=== PATIENT | male | born 1945 | race Two or more races ===

== ENCOUNTER 2016-11-19 06:32 | Day surgery (SDC) | payer MEDICARE ==
[2016-11-18 12:08] VITALS: BMI 34.7
[~2016-11-19 06:32] MED LIST: HYDROmorphone 1 MG/ML 1 ML SYRINGE IVP PRN; LACTATED RINGERS 1,000 ML IV SCH; SODIUM CHLORIDE 0.9% 1,000 ML IV SCH
[2016-11-19 07:02] LABS: Glucose,Whole Blood 124 mg/dL (75-99)
[2016-11-19] MEDS ORDERED: PROPOFOL 10 MG/ML 20 ML VIAL IV ONE (07:25)
[2016-11-19 07:36] LABS: Anion Gap 11 mmol/L; Blood Urea Nitrogen 20 mg/dL (9-20); Calcium 9.4 mg/dL (8.4-10.2); Carbon Dioxide 29 mmol/L (22-30); Chloride 105 mmol/L (98-107); Glucose 125 mg/dL (74-99); Non-African American GFR(MDRD) >60 (>60 ml/min/1.73 sqM); Potassium 4.5 mmol/L (3.5-5.1); Sodium 145 mmol/L (137-145)
[2016-11-19] MEDS ORDERED: MECLIZINE 25 MG TAB PO PRN (07:48)
[2016-11-19] MEDS ORDERED: FUROSEMIDE 20 MG TAB PO PRN (07:48)
[2016-11-19] MEDS ORDERED: ALBUTEROL INHALER 60 PUFF/8 GM INHALER INHALATION PRN (07:48)
[2016-11-19 07:55] VITALS: RESP 16
[2016-11-19] MEDS ORDERED: SODIUM CHLORIDE 0.9% 1,000 ML IV SCH (08:00)
[2016-11-19] MEDS ORDERED: MULTIVITAMINS, THERA 1 EACH TAB PO SCH (09:00)
[2016-11-19] MEDS ORDERED: NON-FORMULARY DRUG (Potassium Chloride [K-Tab Er] 10 MEQ) PO SCH (09:00)
[2016-11-19] MEDS ORDERED: APIXABAN 5 MG TAB PO SCH (09:00)
[2016-11-19] MEDS ORDERED: amLODIPine 5 MG TAB PO SCH (09:00)
[2016-11-19] MEDS ORDERED: metFORMIN 500 MG TAB PO SCH (09:00)
[2016-11-19] MEDS ORDERED: CYANOCOBALAMIN 2000 MCG PO SCH (09:00)
[2016-11-19] MEDS ORDERED: LEVOTHYROXINE 125 MCG TAB PO SCH (09:00)
[2016-11-19] MEDS ORDERED: BECLOMETHASONE DIP 80 MCG/PUFF INHALER INHALATION SCH (09:00)
[2016-11-19] MEDS ORDERED: CHOLECALCIFEROL 1,000 UNIT TAB PO SCH (09:00)
[2016-11-19 09:24] VITALS: BP 126/77; PULSE 60; TEMP 98.2
--- NOTE | 2016-11-19 10:47 | ECHOT ---
DATE OF SERVICE: CLINICAL INFORMATION: INDICATION: Evaluation of left atrial appendage. PROCEDURE: After explaining the procedure to the patient as well as the risks and complications, his blood pressure, heart rate, O2 saturation was monitored. The throat was sprayed with Cetacaine. After receiving sedation state per anesthesia department, the probe was introduced into the esophagus. Images were obtained from that. Following that, the probe was removed. There were no immediate complications. FINDINGS: Left atrial size is dilated, right atrial size is dilated. Left atrial appendage is normal. Left ventricular size and systolic function is normal. The aortic valve appear to be normal. Mitral valve is normal. Tricuspid valve is normal. Descending thoracic aortic appears to be normal. Contrast bubble study revealed no evidence of shunting across the interatrial septum. No pericardial effusion was noted. Doppler pulse wave and color Doppler were obtained and revealed mild to moderate mitral with mild tricuspid and aortic regurgitation. There was no shunting by color Doppler study. CONCLUSION: 1. Biatrial enlargement with normal appearance of left atrial appendage. 2. Normal left ventricular size systolic function. 3. Mild to moderate mitral with mild tricuspid and aortic regurgitation. 4. Normal appearance descending thoracic aorta. 5. No shunting by color Doppler study.
[2016-11-19] MEDS ORDERED: VALSARTAN PO SCH (12:00)
[2016-11-19] MEDS ORDERED: HYDROCHLOROTHIAZIDE PO SCH (12:00)
--- NOTE | 2016-11-19 15:26 | CE ---
DATE OF SERVICE: INDICATION: Atrial fibrillation. PROCEDURE: After explaining the procedure to the patient as well as risks and complications, after obtaining sedated state and performing transesophageal echocardiogram and with the assistance of the Anesthesia Department, a synchronized biphasic 200 joule was delivered with moravian of normal sinus rhythm. There was no immediate complication.
[2016-11-19] MEDS ORDERED: ATENOLOL 25 MG TAB PO SCH (21:00)
== END 2016-11-19 09:32 | disposition home or self-care (01) ==
LOC: CATHCVL 06:32
PROVIDERS: ATTEND Internal Medicine Interventional Cardiology
DX: I48.2 Chronic atrial fibrillation (principal); Z79.01 Long term (current) use of anticoagulants; I08.3 Combined rheumatic disorders of mitral, aortic and tricuspid valves; I25.10 Atherosclerotic heart disease of native coronary artery without angina pectoris; I10 Essential (primary) hypertension; E78.2 Mixed hyperlipidemia; E11.9 Type 2 diabetes mellitus without complications; Z79.84 Long term (current) use of oral hypoglycemic drugs; E03.9 Hypothyroidism, unspecified; Z79.51 Long term (current) use of inhaled steroids; Z79.899 Other long term (current) drug therapy; Z88.0 Allergy status to penicillin; Z91.09 Other allergy status, other than to drugs and biological substances
CPT/HCPCS: 93312; 93320; 93005; 93325; 92960; 80048; J2704

== ENCOUNTER → 2017-05-02 | Outpatient (CLI) | payer MEDICARE ==
--- NOTE | 2017-05-03 12:38 | MR ---
EXAMINATION TYPE: MR cervical spine wo con DATE OF EXAM: 05/02/2017 11:34 AM COMPARISON: 02/18/2010 HISTORY: Neck pain Multiplanar MultiSpin echo imaging of the cervical spine was performed. Comparison: 02/18/2010 C2-C3: No evidence for degenerative disc disease. No disc bulge/herniation or protrusion. No Canal stenosis. Foramina are patent bilaterally. C3-C4: There is severe disc desiccation. Moderate posterior central disc herniation effaces the ventr al thecal sac. There is cord contact with moderately severe central stenosis. Increased signal within the cervical spinal cord compatible with compressive myelopathy. There is also thinning of the cervi aldair spinal cord at this level. Uncovertebral joint hypertrophy resulting in bilateral foraminal encro achment at least moderate in degree. C4-C5: There is severe disc desiccation. Moderate posterior central disc herniation effaces the ventr al thecal sac. There is cord contact with moderately severe central stenosis. Increased signal within the cervical spinal cord compatible with compressive myelopathy. There is also thinning of the cervi aldair spinal cord at this level. Uncovertebral joint hypertrophy resulting in bilateral foraminal encro achment at least moderate in degree. C5-C6: Moderate disc desiccation. Moderate diffuse posterior disc bulge with effacement of the ventra l thecal sac. Small herniation suspected paracentrally and to the right at the level of the right kevin ral foramen resulting in foraminal encroachment. Mild deformity of the ventral thecal sac with mild c entral stenosis. C6-C7: Moderate disc desiccation. Left paracentral disc protrusion with mild effacement ventral theca l sac. No evidence for cord contact or central stenosis. Degenerative change and uncovertebral joints resulting in right foraminal encroachment. C7-T1: Moderate disc desiccation. Diffuse posterior disc bulge with mild effacement ventral thecal sa c. No herniation or central stenosis. No cord contact. Bilateral foraminal encroachment. Cervical segments are intact. There is normal alignment. Craniovertebral junction relationships a re within normal limits. IMPRESSION: 1. Progressive Multilevel degenerative disc disease. 2. Multilevel central stenosis greatest at C3-4 and C4-5 and mild at C5-6. 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 3. Multilevel neural foraminal encroachment.
== END | disposition home or self-care (01) ==
LOC: RADMRIMAIN 10:56
PROVIDERS: ATTEND Family Medicine
DX: M48.02 Spinal stenosis, cervical region (principal); M50.30 Other cervical disc degeneration, unspecified cervical region
CPT/HCPCS: 72141

== ENCOUNTER → 2018-08-27 | Outpatient (CLI) | payer MEDICARE ==
--- NOTE | 2018-08-27 09:50 | MR ---
EXAMINATION TYPE: MR lumbar spine wo con DATE OF EXAM: 08/27/2018 COMPARISON: 05/07/2010 HISTORY: Spinal stenosis, lumbar region TECHNIQUE: T1 and T2 axial and sagittal images of the lumbar spine are submitted. FINDINGS: There is no abnormal signal seen within the visualized spinal cord or paraspinal soft tissu es. Bilateral renal cyst are seen with a large renal cyst measuring approximately 10 cm on the left. At L1-2 there is degenerative disc disease with no disc herniation or canal stenosis. No foraminal en croachment. At L2-3 there is degenerative disc disease with central broad-based disc protrusion with moderate eff acement of thecal sac. Facet arthropathy and ligament flavum hypertrophy contribute to mild central s tenosis and bilateral foraminal encroachment. However, suspect a small extruded disc fragment measuri ng 5 mm paracentrally to left posterior to the upper margin of the L3 vertebral body. At L3-4 there is degenerative disc disease with facet arthropathy but no canal stenosis. Mild bilater al neural foraminal encroachment. At L4-5 there is degenerative disc disease with facet arthropathy and ligamentum flavum hypertrophy. Disc bulging contributes to mild to moderate canal stenosis and moderate bilateral foraminal encroach ment. Cannot exclude a tiny extruded disc fragment paracentrally to left posterior to the L4 vertebra l body. At L5-S1 there is degenerative disc disease with central disc bulging. No Canal stenosis. Advanced fa cet arthropathy with moderate bilateral foraminal encroachment greater on the right. IMPRESSION: 1. Multilevel degenerative disc disease with mild progression relative the prior exam. 2. Disc bulging and hypertrophic changes L2-L3 progressed. There is moderate central stenosis and alexey picion for a small 5 mm extruded disc fragment paracentrally to left posterior to the upper margin of the L3 vertebral body. 3. Disc bulging L4-L5 with hypertrophic changes results in mild to moderate canal stenosis and bilate ral foraminal encroachment. Cannot exclude a tiny extruded disc fragment paracentrally to left respiratory therapy technician ior to the L4 vertebral body. 4. Multilevel facet arthropathy and foraminal encroachment as discussed above. 5. There is a large 10 cm left simple renal cyst.
== END | disposition home or self-care (01) ==
LOC: RADMRIMAIN 08:35
PROVIDERS: ATTEND Specialist
DX: M48.061 Spinal stenosis, lumbar region without neurogenic claudication (principal); M51.26 Other intervertebral disc displacement, lumbar region; M51.36 Other intervertebral disc degeneration, lumbar region; M46.96 Unspecified inflammatory spondylopathy, lumbar region
CPT/HCPCS: 72148

== ENCOUNTER → 2018-09-22 | Outpatient (CLI) | payer MEDICARE ==
--- NOTE | 2018-09-22 08:55 | US ---
EXAMINATION TYPE: US abdomen complete DATE OF EXAM: 09/22/2018 COMPARISON: US CLINICAL HISTORY: R10.11 RUQ Abdominal Pain. NPO, RUQ pain EXAM MEASUREMENTS: Liver Length: 16.9 cm Gallbladder Wall: 0.3 cm CBD: 0.2 cm Spleen: 0.3 cm Right Kidney: 12.4 x 4.9 x 6.1 cm Left Kidney: 12.9 x 4.3 x 5.9 cm Pancreas: Tail obscured by overlying bowel gas, echogenic in appearance Liver: wnl Gallbladder: wnl Evidence for sonographic Vu's sign: neg CBD: wnl CHD: wnl Spleen: wnl, limited visualization Right Kidney: wnl Left Kidney: Multiple cystic appearing lesion seen, largest measured. Upper- 8.8 x 8.6 x 9.4 cm. L ower- 2.7 x 2.3 x 2.1 cm Upper IVC: wnl Abd Aorta: Prox and mid not visualized due to overlying bowel gas. The liver is homogenous. The intrahepatic portion of the IVC and proximal abdominal aorta are within normal limits. There is no evidence of cholelithiasis. Common bile duct is unremarkable. The visu alized portions of the pancreas are homogenous. The spleen is unremarkable. Kidneys are symmetric a nd free of hydronephrosis. No solid renal lesions are seen. IMPRESSION: 1. Multiple left renal cystic lesions.
== END | disposition home or self-care (01) ==
LOC: RADUSWWP 08:09
PROVIDERS: ATTEND Family Medicine
DX: N28.1 Cyst of kidney, acquired (principal)
CPT/HCPCS: 76700

== ENCOUNTER → 2018-10-06 | Outpatient (CLI) | payer MEDICARE ==
[2018-10-06 08:34] LABS: Blood Urea Nitrogen 25 mg/dL (9-20)
--- NOTE | 2018-10-06 13:40 | CT ---
EXAMINATION TYPE: CT chest w con DATE OF EXAM: 10/06/2018 COMPARISON: None HISTORY: Right lower rib/side pain CT DLP: 533.6 mGycm, Automated exposure control for dose reduction was used. CONTRAST: Performed injected with 100 mL of Isovue 300. TECHNIQUE: Axial images were obtained at 5 mm thick sections. Reconstructed images are reviewed on [employer] computer in the coronal plane. FINDINGS: Portion of the thyroid visualized is normal. No suspicious lung nodules or focal infiltrates are present. There is a calcified nodule within the periphery of the right midlung measuring 0.5 cm likely is a calcified granuloma. No enlarged mediastinal or hilar adenopathy is evident. The ascending aorta diameter at the level o f the main pulmonary artery is 4.1 cm. The main pulmonary artery diameter at the bifurcation is 3.[address] sections are obtained through the upper abdomen. There is a 9.8 cm cyst measuring 6 Hounsf ield units extending from the superior pole left kidney. IMPRESSIONS: 1. Calcified nodule within the right midlung likely granuloma. Follow-up in 6 months can be performed . 2. Large left renal cyst
== END | disposition home or self-care (01) ==
LOC: RADCTMAIN 07:53
PROVIDERS: ATTEND Family Medicine
DX: R91.1 Solitary pulmonary nodule (principal)
CPT/HCPCS: 82565; 84520; 71260; 36415; Q9967

== ENCOUNTER 2018-12-24 14:07 | Emergency (ER) | payer MEDICARE ==
[2018-12-24 14:15] VITALS: TEMP 97.9
[2018-12-24] MEDS ORDERED: SODIUM CHLORIDE 0.9% 1,000 ML IV STA (14:49)
[2018-12-24] MEDS ORDERED: MECLIZINE 12.5 MG TAB PO STA (14:52)
--- NOTE | 2018-12-24 14:52 | ED ---
Syncope HPI - General Chief Complaint: Syncope Stated Complaint: Fall, Dizziness Time Seen by Provider: 12/24/18 14:25 Source: patient, family, RN notes reviewed Mode of arrival: wheelchair Limitations: no limitations - History of Present Illness Initial Comments: This is a 73-year-old male with a prior history of vertigo who had been prescribed Antivert 3 years ago who states he had the onset last evening of left so where he was sitting inside of his bed and neck seen in he was on the ground. He believes he almost passed out very briefly but the symptoms resolved right away. He states there are time he moves his eyes or head he feels like he is spinning. He feels generally weak no focal deficits no headache no blurry vision. He does state he has some itchiness in his left ear. He did recently fly an airplane. He has had nausea vomiting and diarrhea since yesterday. No fevers chills sweats or other symptoms reported at this time no other modifying factors he did take Antivert last night and this morning without relief he states it may be because of old prescription and the medication may not be working. MD Complaint: loss of consciousness, other - Related Data Home Medications Medication Instructions Recorded Confirmed Furosemide [Lasix] 20 mg PO DAILY PRN 01/26/15 12/24/18 Levothyroxine Sodium [Synthroid] 125 mcg PO QAM 01/26/15 12/24/18 amLODIPine [Norvasc] 5 mg PO QAM 01/26/15 12/24/18 Multivitamins, Thera [Multivitamin] 1 tab PO DAILY 01/29/15 12/24/18 Valsartan/Hydrochlorothiazide 1 tab PO DAILY 01/29/15 12/24/18 [Diovan Hct 160-25 mg Tablet] metFORMIN HCL [Glucophage] 500 mg PO BID 01/29/15 12/24/18 Atenolol 12.5 mg PO HS 10/09/15 12/24/18 Cyanocobalamin (Vitamin B-12) 2,000 mcg PO DAILY 10/09/15 12/24/18 [Vitamin B-12] Apixaban [Eliquis] 5 mg PO BID 11/18/16 12/24/18 Meclizine [Antivert] 25 mg PO BID PRN 11/19/16 12/24/18 Atorvastatin [Lipitor] 20 mg PO DAILY 12/24/18 12/24/18 Cholecalciferol [Vitamin D3 (25 5,000 unit PO DAILY 12/24/18 12/24/18 Mcg = 1000 Iu)] Vitamin B Complex 1 cap PO DAILY 12/24/18 12/24/18 Previous Rx's Medication Instructions Recorded Diazepam [Valium] 2 mg PO BID PRN #10 tab 12/24/18 Furosemide [Lasix] 10 mg PO BID PRN #10 tab 12/24/18 Meclizine [Antivert] 25 mg PO TID #20 tab 12/24/18 Allergies Allergy/AdvReac Type Severity Reaction Status Date / Time Iodinated Contrast- Oral and Allergy Severe Dyspnea,N/V Verified 12/24/18 14:36 IV Dye [Iodinated Contrast Media - IV Dye] iodine Allergy Severe Dyspnea,N/V Verified 12/24/18 14:36 adhesive Allergy Rash/Hives Verified 12/24/18 14:36 Penicillins Allergy Rash/Hives Verified 12/24/18 14:36 Review of Systems ROS Statement: Those systems with pertinent positive or pertinent negative responses have been documented in the HPI. ROS Other: All systems not noted in ROS Statement are negative. Past Medical History Past Medical History: Atrial Fibrillation, Asthma, Diabetes Mellitus, Hypertension, Prostate Disorder, Thyroid Disorder Additional Past Medical History / Comment(s): steroids October 27,bronchitis,arthritis, bulging disks neck and lower back, slow heart beat,enlarged prostate History of Any Multi-Drug Resistant Organisms: None Reported Past Surgical History: Appendectomy, Heart Catheterization, Prostate Surgery Additional Past Surgical History / Comment(s): neck surgery, BPH/TURP, multiple cardioversion , growth removed from left ear Past Anesthesia/Blood Transfusion Reactions: No Reported Reaction Additional Past Anesthesia/Blood Transfusion Reaction / Comment(s): no hx blood transfusion Past Psychological History: No Psychological Hx Reported Smoking Status: Former smoker Past Alcohol Use History: Rare Past Drug Use History: None Reported - Past Family History Father Family Medical History: Cancer Additional Family Medical History / Comment(s): at age 91 or 92,colon CA Sister(s) Family Medical History: Cancer Additional Family Medical History / Comment(s): kidney,breast,leg Mother Family Medical History: CVA/TIA, Diabetes Mellitus Additional Family Medical History / Comment(s): heart problems, at age 83 or 84 General Exam - General Exam Comments Initial Comments: This is a well-developed well-nourished awake alert oriented 3 male Limitations: no limitations General appearance: alert, in no apparent distress Head exam: Present: atraumatic, normocephalic, normal inspection Eye exam: Present: normal appearance, PERRL, EOMI. Absent: scleral icterus, conjunctival injection, periorbital swelling ENT exam: Present: normal exam, mucous membranes dry, mucous membranes moist Neck exam: Present: normal inspection. Absent: tenderness, meningismus, lymphadenopathy Respiratory exam: Present: normal lung sounds bilaterally. Absent: respiratory distress, wheezes, rales, rhonchi, stridor Cardiovascular Exam: Present: normal rhythm, bradycardia. Absent: systolic murmur, diastolic murmur, rubs, gallop, clicks GI/Abdominal exam: Present: soft, normal bowel sounds. Absent: distended, tenderness, guarding, rebound, rigid Extremities exam: Present: normal inspection, full ROM, normal capillary refill. Absent: tenderness, pedal edema, joint swelling, calf tenderness Back exam: Present: normal inspection Neurological exam: Present: alert, oriented X3, CN II-XII intact Psychiatric exam: Present: normal affect, normal mood Skin exam: Present: warm, dry, intact, normal color. Absent: rash Course Vital Signs 12/24/18 12/24/18 12/24/18 14:10 14:30 15:00 Temperature 97.9 F Pulse Rate 54 L 52 L 55 L Respiratory 16 20 27 H Rate Blood Pressure 135/81 133/89 140/98 O2 Sat by Pulse 99 96 96 Oximetry 12/24/18 12/24/18 15:30 16:00 Temperature Pulse Rate 47 L 48 L Respiratory 20 24 Rate Blood Pressure 118/88 121/78 O2 Sat by Pulse 95 97 Oximetry EKG Findings - EKG Results: EKG: interpreted by ERMD (Patient has a junctional rhythm rate was 49 QRS 86 QT since QTC of 484/[address]-T wave configuration compared with an EKG dated 11/19/16 showing similar configuration) Medical Decision Making - Medical Decision Making (Showing much improved after the Antivert was given. We did discuss different options patient would like to try going home on a new prescription of Antivert he will be given a low dose of Valium and Lasix to be tried should this fail. He's also been and try the maneuvers that he is aware of. Otherwise follow-up with his doctor and return when necessary - Lab Data Result diagrams: 12/24/18 14:27 12/24/18 14:27 Lab Results 12/24/18 12/24/18 12/24/18 Range/Units 14:27 14:27 14:27 WBC 9.5 (3.8-10.6) k/uL RBC 5.22 (4.30-5.90) m/uL Hgb 14.5 (13.0-17.5) gm/dL Hct 45.8 (39.0-53.0) % MCV 87.7 (80.0-100.0) fL MCH 27.8 (25.0-35.0) pg MCHC 31.7 (31.0-37.0) g/dL RDW 13.6 (11.5-15.5) % Plt Count 229 (150-450) k/uL Neutrophils % 60 % Lymphocytes % 29 % Monocytes % 7 % Eosinophils % 2 % Basophils % 1 % Neutrophils # 5.7 (1.3-7.7) k/uL Lymphocytes # 2.7 (1.0-4.8) k/uL Monocytes # 0.7 (0-1.0) k/uL Eosinophils # 0.2 (0-0.7) k/uL Basophils # 0.1 (0-0.2) k/uL PT 10.8 (9.0-12.0) sec INR 1.0 (<1.2) APTT 25.3 (22.0-30.0) sec Sodium 140 (137-145) mmol/L Potassium 4.3 (3.5-5.1) mmol/L Chloride 105 (98-107) mmol/L Carbon Dioxide 26 (22-30) mmol/L Anion Gap 9 mmol/L BUN 15 (9-20) mg/dL Creatinine 0.77 (0.66-1.25) mg/dL Est GFR (CKD-EPI)AfAm >90 (>60 ml/min/1.73 sqM) Est GFR (CKD-EPI)NonAf 90 (>60 ml/min/1.73 sqM) Glucose 150 H (74-99) mg/dL Calcium 9.5 (8.4-10.2) mg/dL Magnesium 1.9 (1.6-2.3) mg/dL Total Bilirubin 0.7 (0.2-1.3) mg/dL AST 21 (17-59) U/L ALT 17 L (21-72) U/L Alkaline Phosphatase 64 (38-126) U/L Creatine Kinase 90 (55-170) U/L Troponin I (0.000-0.034) ng/mL Total Protein 6.7 (6.3-8.2) g/dL Albumin 4.0 (3.5-5.0) g/dL Urine Color Urine Appearance (Clear) Urine pH (5.0-8.0) Ur Specific [place] (1.001-1.035) Urine Protein (Negative) Urine Glucose (UA) (Negative) Urine Ketones (Negative) Urine Blood (Negative) Urine Nitrite (Negative) Urine Bilirubin (Negative) Urine Urobilinogen (<2.0) mg/dL Ur Leukocyte Esterase (Negative) Urine RBC (0-5) /hpf Urine WBC (0-5) /hpf Ur Squamous Epith Cells (0-4) /hpf 12/24/18 12/24/18 Range/Units 14:27 15:10 WBC (3.8-10.6) k/uL RBC (4.30-5.90) m/uL Hgb (13.0-17.5) gm/dL Hct (39.0-53.0) % MCV (80.0-100.0) fL MCH (25.0-35.0) pg MCHC (31.0-37.0) g/dL RDW (11.5-15.5) % Plt Count (150-450) k/uL Neutrophils % % Lymphocytes % % Monocytes % % Eosinophils % % Basophils % % Neutrophils # (1.3-7.7) k/uL Lymphocytes # (1.0-4.8) k/uL Monocytes # (0-1.0) k/uL Eosinophils # (0-0.7) k/uL Basophils # (0-0.2) k/uL PT (9.0-12.0) sec INR (<1.2) APTT (22.0-30.0) sec Sodium (137-145) mmol/L Potassium (3.5-5.1) mmol/L Chloride (98-107) mmol/L Carbon Dioxide (22-30) mmol/L Anion Gap mmol/L BUN (9-20) mg/dL Creatinine (0.66-1.25) mg/dL Est GFR (CKD-EPI)AfAm (>60 ml/min/1.73 sqM) Est GFR (CKD-EPI)NonAf (>60 ml/min/1.73 sqM) Glucose (74-99) mg/dL Calcium (8.4-10.2) mg/dL Magnesium (1.6-2.3) mg/dL Total Bilirubin (0.2-1.3) mg/dL AST (17-59) U/L ALT (21-72) U/L Alkaline Phosphatase (38-126) U/L Creatine Kinase (55-170) U/L Troponin I <0.012 (0.000-0.034) ng/mL Total Protein (6.3-8.2) g/dL Albumin (3.5-5.0) g/dL Urine Color Light Yellow Urine Appearance Clear (Clear) Urine pH 6.0 (5.0-8.0) Ur Specific [place] 1.004 (1.001-1.035) Urine Protein Trace H (Negative) Urine Glucose (UA) Negative (Negative) Urine Ketones Negative (Negative) Urine Blood Trace H (Negative) Urine Nitrite Negative (Negative) Urine Bilirubin Negative (Negative) Urine Urobilinogen <2.0 (<2.0) mg/dL Ur Leukocyte Esterase Negative (Negative) Urine RBC 2 (0-5) /hpf Urine WBC 1 (0-5) /hpf Ur Squamous Epith Cells <1 (0-4) /hpf - Radiology Data Radiology results: report reviewed (I did review the imaging and report no acute findings.), image reviewed Disposition Clinical Impression: Benign paroxysmal vertigo Disposition: HOME SELF-CARE Condition: Good Instructions (If sedation given, give patient instructions): Benign Paroxysmal Positional Vertigo (ED) Prescriptions: Meclizine [Antivert] 25 mg PO TID #20 tab Furosemide [Lasix] 10 mg PO BID PRN #10 tab PRN Reason: Vertigo Diazepam [Valium] 2 mg PO BID PRN #10 tab PRN Reason: Vertigo Is patient prescribed a controlled substance at d/c from ED?: No Referrals: Regan Duque DO [Primary Care Provider] - 1-2 days
[2018-12-24 15:04] LABS: Basophils # (A) 0.1 k/uL (0-0.2); Basophils % (A) 1 %; Eosinophils # (A) 0.2 k/uL (0-0.7); Eosinophils % (A) 2 %; HCT 45.8 % (39.0-53.0); HGB 14.5 gm/dL (13.0-17.5); Lymphocytes # (A) 2.7 k/uL (1.0-4.8); Lymphocytes % (A) 29 %; MCH 27.8 pg (25.0-35.0); MCHC 31.7 g/dL (31.0-37.0); MCV 87.7 fL (80.0-100.0); Mean Platelet Volume 6.9; Monocytes # (A) 0.7 k/uL (0-1.0); Monocytes % (A) 7 %; Neutrophils # (A) 5.7 k/uL (1.3-7.7); Neutrophils % (A) 60 %; Platelet Count 229 k/uL (150-450); RBC 5.22 m/uL (4.30-5.90); RDW 13.6 % (11.5-15.5); WBC 9.5 k/uL (3.8-10.6)
[2018-12-24 15:11] LABS: ALT 17 U/L (21-72); AST 21 U/L (17-59); Alkaline Phosphatase 64 U/L (38-126); Anion Gap 9 mmol/L; Blood Urea Nitrogen 15 mg/dL (9-20); Calcium 9.5 mg/dL (8.4-10.2); Carbon Dioxide 26 mmol/L (22-30); Chloride 105 mmol/L (98-107); Creatine Kinase 90 U/L (55-170); Glucose 150 mg/dL (74-99); Magnesium 1.9 mg/dL (1.6-2.3); Partial Thromboplastin Time 25.3 sec (22.0-30.0); Potassium 4.3 mmol/L (3.5-5.1); Prothrombin Time 10.8 sec (9.0-12.0); Sodium 140 mmol/L (137-145); Total Bilirubin 0.7 mg/dL (0.2-1.3); Total Protein 6.7 g/dL (6.3-8.2)
--- NOTE | 2018-12-24 15:16 | XR ---
EXAMINATION TYPE: XR chest 2V DATE OF EXAM: 12/24/2018 COMPARISON: 06/17/2010 HISTORY: Syncope and fall. TECHNIQUE: Frontal and lateral views of the chest are obtained. FINDINGS: There is no focal air space opacity, pleural effusion, or pneumothorax seen. Cardiomediast inal silhouette is mildly enlarged. The osseous structures are intact. There is partial visualizati on of a cervical fusion device. The noncalcified pulmonary nodule in the right midlung for which six- month follow-up was recommended of 10/06/2018 is not seen well radiographically. Continued follow-up w ith CT is recommended. IMPRESSION: No acute cardiopulmonary process.
[2018-12-24 15:23] LABS: Appearance,Urine Clear (Clear); Bilirubin,Urine Negative (Negative); Blood,Urine Trace (Negative); Color,Urine Light Yellow; Glucose,Urine (UA) Negative (Negative); Ketones,Urine Negative (Negative); Leukocyte Esterase,Urine Negative (Negative); Nitrite,Urine Negative (Negative); Protein,Urine Trace (Negative); RBC,Urine 2 /hpf (0-5); Specific Gravity,Urine 1.004 (1.001-1.035); Squamous Epithelial Cell,Urine <1 /hpf (0-4); Urobilinogen,Urine <2.0 mg/dL (<2.0); WBC,Urine 1 /hpf (0-5)
--- NOTE | 2018-12-24 15:48 | CT ---
EXAMINATION TYPE: CT brain wo con DATE OF EXAM: 12/24/2018 COMPARISON: Dizziness HISTORY: Dizziness x couple days. CT DLP: 1146.4 mGycm Automated exposure control for dose reduction was used. FINDINGS: Nasal septal deviation with changes of chronic sinusitis. Calvarium intact. Gqxe-ia-pyvektib generalized degenerative change. Low-attenuation within the white matter is nonspeci fic. No acute hemorrhage, mass effect, or midline shift. IMPRESSION: DEGENERATIVE AND NONSPECIFIC WHITE MATTER CHANGES MOST TYPICAL REMOTE MICROVASCULAR ISCHEMIA. NO DIAG NOSTIC EVIDENCE OF ACUTE HEMORRHAGE. IF THERE IS CONCERN FOR ACUTE ISCHEMIA CORRELATE WITH MRI IF CLINICALLY WARRANTED
[2018-12-24 16:19] VITALS: BP 121/78; PULSE 48; RESP 24
== END 2018-12-24 16:43 | disposition home or self-care (01) ==
LOC: EC 14:07
DX: H81.10 Benign paroxysmal vertigo, unspecified ear (principal); R11.2 Nausea with vomiting, unspecified; R19.7 Diarrhea, unspecified; I48.91 Unspecified atrial fibrillation; J45.909 Unspecified asthma, uncomplicated; E11.9 Type 2 diabetes mellitus without complications; I10 Essential (primary) hypertension; N40.0 Benign prostatic hyperplasia without lower urinary tract symptoms; E07.9 Disorder of thyroid, unspecified; Z87.891 Personal history of nicotine dependence; Z79.01 Long term (current) use of anticoagulants; Z79.84 Long term (current) use of oral hypoglycemic drugs; Z79.890 Hormone replacement therapy; Z79.899 Other long term (current) drug therapy; Z88.0 Allergy status to penicillin; Z91.041 Radiographic dye allergy status; Z91.048 Other nonmedicinal substance allergy status; Z88.8 Allergy status to other drugs, medicaments and biological substances; Z95.818 Presence of other cardiac implants and grafts
CPT/HCPCS: 36415; 70450; 71046; 80053; 81001; 82550; 83735; 84484; 85025; 85610; 85730; 96360; 96361; 99284

== ENCOUNTER → 2019-02-07 | Outpatient (CLI) | payer MEDICARE ==
--- NOTE | 2019-02-07 15:45 | US ---
EXAMINATION TYPE: US carotid duplex BILAT DATE OF EXAM: 02/07/2019 COMPARISON: NONE CLINICAL HISTORY: I67.82 Cerebral Ischemia. DIZZINESS EXAM MEASUREMENTS: RIGHT: Peak Systolic Velocity (PSV) cm/sec ----- Right CCA: 66.9 ----- Right ICA: 103.1 ----- Right ECA: 108.4 ICA/CCA ratio: 1.5 RIGHT: End Diastole cm/sec ----- Right CCA: 17.1 ----- Right ICA: 33.8 ----- Right ECA: 31.9 LEFT: Peak Systolic Velocity (PSV) cm/sec ----- Left CCA: 50.8 ----- Left ICA: 53.0 ----- Left ECA: 75.6 ICA/CCA ratio: 1.0 LEFT: End Diastole cm/sec ----- Left CCA: 14.1 ----- Left ICA: 18.5 ----- Left ECA: 10.6 VERTEBRALS (direction of flow): Right Vertebral: Antegrade Left Vertebral: Antegrade Rhythm: Arrhythmia Mild homogeneous plaque with no significant stenosis seen IMPRESSION: 1. Mild degree of grayscale atheromatous plaquing with no sonographically evident hemodynamically sig nificant stenosis within either visualized carotid arterial system. 2. Incidentally noted cardiac arrhythmia. Correlate with EKG. Criteria for Assigning % of Stenosis / Diameter reduction (Estimation based on the indirect measurements of the internal carotid artery velocities (ICA PSV). 1. Normal (no stenosis)=ICA PSV < 125 cm/s: ratio < 2.0: ICA EDV<40 cm/s. 2. Less than 50% stenosis=ICA PSV < 125 cm/s: ratio < 2.0: ICA EDV<40 cm/s. 3. 50 to 69% stenosis=ICA PSV of 125 to 230 cm/s: ration 2.0 ? 4.0: ICA EDV 40-100 cm/s. 4. Greater than 70% stenosis to near occlusion= ICA PSV > 230 cm/s: ratio > 4.0: ICA EDV > 100 cm/s. 5. Near occlusion= ICA PSV velocities may be low or undetectable: variable ratio and ICA EDV. 6. Total occlusion=unable to detect flow.
== END | disposition home or self-care (01) ==
LOC: RADUSWWP 14:47
PROVIDERS: ATTEND Family Medicine
DX: I67.2 Cerebral atherosclerosis (principal); I67.82 Cerebral ischemia
CPT/HCPCS: 93880

== ENCOUNTER → 2019-02-07 | Outpatient (CLI) | payer MEDICARE ==
--- NOTE | 2019-02-07 23:47 | MR ---
EXAMINATION TYPE: MR brain and iac wo/w con DATE OF EXAM: 02/07/2019 COMPARISON: HISTORY: vertigo and dizziness, 10ml gadavist TECHNIQUE: Multiplanar, multisequence images of the brain and brainstem is performed without and with IV contras t, utilizing 10ml mL intravenous Gadavist . FINDINGS: There is cerebral cortical atrophy. There is no mass effect nor midline shift. There is no sign of in tracranial hemorrhage. There is no evidence of acute cortical infarct. There is on the FLAIR images discrete scattered foci of increased signal at the byers-white matter kavon ction of both cerebral hemispheres that measure up to 8 mm. Total numbers approximately 15. The brain stem is intact. There is mild mucosal thickening in the maxillary and ethmoid sinuses. There is no evidence of cerebellopontine angle mass. Internal auditory canals appear normal. ACOUSTIC and vestibular nerves appear normal. I see no bony destructive process. Temporal bones appear normal . Cerebellum appears normal. Optic chiasm appears normal. Pituitary stalk appears normal. Sella turcica is normal. There is mild t hinning of the corpus callosum. There is no pathologic enhancement. IMPRESSION: Cerebral atrophy. Scattered white matter signal changes consistent with chronic small ves enma ischemia. No evidence of cortical infarct. No evidence of posterior fossa focal abnormality.
== END | disposition home or self-care (01) ==
LOC: RADMRIMAIN 20:21
PROVIDERS: ATTEND Family Medicine
DX: G31.1 Senile degeneration of brain, not elsewhere classified (principal); I67.82 Cerebral ischemia; H81.10 Benign paroxysmal vertigo, unspecified ear
CPT/HCPCS: 70553; A9585

== ENCOUNTER → 2019-03-11 | Outpatient (CLI) | payer MEDICARE ==
--- NOTE | 2019-03-13 16:15 | MR ---
EXAMINATION TYPE: MR angio head wo con DATE OF EXAM: 03/11/2019 COMPARISON: MRI of the brain and internal auditory canals dated 02/07/2019 HISTORY: Dizziness TECHNIQUE: Time of flight images focusing on the [place] were performed without contrast.. 2-D and 3-D postprocessing imaging is performed. FINDINGS: The internal carotid arteries bifurcate normally into A1 and M1 segments. The A2 segments are normal. Middle cerebral artery branches are normal. 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 Ther e is also a 1 mm saccular aneurysm of the left ICA terminus emanating posteriorly on image 98. Anterior communicating artery is patent. The right posterior communicating artery is patent but extremely diminutive. The left posterior communicating artery is patent but extremely diminutive. Vertebrobasilar arteries within the [id number] are patent. Left vertebral artery is dominant and t here is a tortuous course of the diminutive right vertebral artery. Posterior cerebral vasculature i s normal. No suspicious aneurysm or aneurysmal dilatation is evident in the posterior circulation. No obstructions are identified throughout. No significant flow-limiting stenosis is evident througho ut. 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
== END | disposition home or self-care (01) ==
LOC: RADMRIMAIN 19:36
PROVIDERS: ATTEND Psychiatry & Neurology Neurology
DX: I65.23 Occlusion and stenosis of bilateral carotid arteries (principal)
CPT/HCPCS: 70544

== ENCOUNTER → 2019-07-05 | Outpatient (CLI) | payer MEDICARE ==
[2019-07-05 09:56] LABS: HCT 45.6 % (39.0-53.0); MCH 29.3 pg (25.0-35.0); MCV 88.9 fL (80.0-100.0); Mean Platelet Volume 6.2; Platelet Count 243 k/uL (150-450); RBC 5.13 m/uL (4.30-5.90); RDW 13.3 % (11.5-15.5); WBC 7.1 k/uL (3.8-10.6)
[2019-07-05 17:13] LABS: Anion Gap 8.4 mmol/L (4.00-12.00); Calcium 9.2 mg/dL (8.7-10.3); Carbon Dioxide 28.6 mmol/L (21.6-31.8); Chol/HDL Ratio 4.26; Non-African American GFR(CKD) 73.3 (60.0-200.0); Potassium 4.5 mmol/L (3.5-5.5)
[2019-07-05 17:21] LABS: T4, Free (Free Thyroxine) 1.3 ng/dL (0.80-1.80)
[2019-07-05 20:49] LABS: Hemoglobin A1C 7.2 % (4.0-6.0)
== END | disposition home or self-care (01) ==
LOC: LABWHC1 08:16
PROVIDERS: ATTEND Family Medicine
DX: E03.9 Hypothyroidism, unspecified (principal); E78.5 Hyperlipidemia, unspecified; N40.1 Benign prostatic hyperplasia with lower urinary tract symptoms; E11.65 Type 2 diabetes mellitus with hyperglycemia
CPT/HCPCS: 36415; 80048; 80061; 83036; 84153; 84439; 84443; 84450; 84460; 85027

== ENCOUNTER → 2020-01-23 | Outpatient (CLI) | payer MEDICARE ==
[2020-01-23 10:04] LABS: HCT 46.9 % (39.0-53.0); MCH 28.3 pg (25.0-35.0); MCHC 31.9 g/dL (31.0-37.0); MCV 88.8 fL (80.0-100.0); Mean Platelet Volume 7.3; Platelet Count 227 k/uL (150-450); RBC 5.28 m/uL (4.30-5.90); RDW 13.5 % (11.5-15.5); WBC 7.1 k/uL (3.8-10.6)
[2020-01-23 16:49] LABS: Hemoglobin A1C 7.3 % (4.0-6.0)
[2020-01-23 17:38] LABS: African American GFR (CKD) 96.5 (60.0-200.0); Anion Gap 10.1 mmol/L (4.00-12.00); BUN/Creat Ratio 17.78 Ratio (12.00-20.00); Calcium 9.1 mg/dL (8.7-10.3); Carbon Dioxide 26.9 mmol/L (21.6-31.8); LDL Cholesterol,Calculated 60.6 mg/dL (0.0-131.0); Non-African American GFR(CKD) 83.3 (60.0-200.0); Potassium 3.9 mmol/L (3.5-5.5); VLDL Calculation 15.4 mg/dL (5.00-40.00)
[2020-01-23 17:46] LABS: T4, Free (Free Thyroxine) 1.5 ng/dL (0.80-1.80)
== END | disposition home or self-care (01) ==
LOC: LABWHC1 08:40
PROVIDERS: ATTEND Family Medicine
DX: E03.9 Hypothyroidism, unspecified (principal); I10 Essential (primary) hypertension; E78.5 Hyperlipidemia, unspecified; E55.9 Vitamin D deficiency, unspecified
CPT/HCPCS: 36415; 80048; 80061; 82306; 83036; 84439; 84443; 84450; 84460; 85027

== ENCOUNTER 2020-02-14 05:08 | Observation (INO) | payer MEDICARE ==
[2020-02-14 05:22] LABS: Glucose,Whole Blood 178 mg/dL (75-99)
[2020-02-14 05:41] VITALS: RESP 18
[2020-02-14 05:50] LABS: Basophils # (A) 0.1 k/uL (0-0.2); Basophils % (A) 1 %; Eosinophils # (A) 0.4 k/uL (0-0.7); Eosinophils % (A) 4 %; HCT 44.2 % (39.0-53.0); HGB 14.7 gm/dL (13.0-17.5); Lymphocytes # (A) 2.3 k/uL (1.0-4.8); Lymphocytes % (A) 23 %; MCH 29.5 pg (25.0-35.0); MCHC 33.2 g/dL (31.0-37.0); Mean Platelet Volume 7.5; Monocytes # (A) 0.6 k/uL (0-1.0); Monocytes % (A) 6 %; Neutrophils # (A) 6.5 k/uL (1.3-7.7); Neutrophils % (A) 66 %; Platelet Count 200 k/uL (150-450); RBC 4.97 m/uL (4.30-5.90); RDW 13.4 % (11.5-15.5); WBC 9.8 k/uL (3.8-10.6)
[2020-02-14] MEDS ORDERED: ONDANSETRON 4 MG/2 ML VIAL IVP STA (05:51)
[2020-02-14 05:59] LABS: ALT 19 U/L (4-49); AST 23 U/L (17-59); African American GFR (CKD) >90 (>60 ml/min/1.73 sqM); Albumin 3.9 g/dL (3.5-5.0); Alkaline Phosphatase 82 U/L (38-126); Amylase 53 U/L (30-110); Anion Gap 9 mmol/L; Blood Urea Nitrogen 14 mg/dL (9-20); Carbon Dioxide 26 mmol/L (22-30); Chloride 104 mmol/L (98-107); Glucose 182 mg/dL (74-99); Non-African American GFR(CKD) >90 (>60 ml/min/1.73 sqM); Potassium 3.5 mmol/L (3.5-5.1); Sodium 139 mmol/L (137-145); Total Bilirubin 0.6 mg/dL (0.2-1.3); Total Protein 6.5 g/dL (6.3-8.2)
--- NOTE | 2020-02-14 06:33 | XR ---
EXAM: XR Chest, 2 Views CLINICAL HISTORY: Chest pain TECHNIQUE: Frontal and lateral views of the chest. COMPARISON: December 24, 2018 FINDINGS: Lungs: Unremarkable. No infiltration, atelectasis or mass density. Pleural space: Unremarkable. No pneumothorax. No pleural fluid. Heart: Unremarkable. Upper limits of normal for size for AP technique Mediastinum: Unremarkable. Bones/joints: Unremarkable. No acute abnormalities. IMPRESSION: No acute findings.
--- NOTE | 2020-02-14 07:08 | ED ---
Nausea/Vomiting/Diarrhea HPI - General Chief complaint: Nausea/Vomiting/Diarrhea Stated complaint: headache,vomiting Time Seen by Provider: 02/14/20 05:47 Source: patient Mode of arrival: wheelchair Limitations: no limitations - History of Present Illness Initial comments: This patient is a 75-year-old man who presents to be evaluated for diaphoresis, vomiting, and mild headache. The patient states she was awakened around 4:30 AM today with nausea and then noticed that he sweat was pouring off of him. He states that he changed his clothes and then they were again saturated after approximately 10 minutes and he started having multiple episodes of vomiting. Patient also was having some mild bilateral headache. The patient notes that he had taken a dose of tramadol at approximately 9:30 PM and that is a new medication for him. He is taking the tramadol for what he is describing as some left sided shoulder pain that he believes is muscular. It had come on a number of days ago after he was using a Rotot[employer]. He was seen by his primary p hyblakean and had been given the tramadol and had taken that for the first time last night. MD complaint: nausea, vomiting, other (Diaphoresis) -: hour(s) Description of Vomiting: food contents Associated Abdominal Pain: No Consistency: constant Improves with: none Worsens with: none Context: other (Medication) Associated Symptoms: headaches - Related Data Home Medications Medication Instructions Recorded Confirmed Levothyroxine Sodium [Synthroid] 125 mcg PO AC-BRKFST 01/26/15 02/14/20 amLODIPine [Norvasc] 5 mg PO QAM 01/26/15 02/14/20 Valsartan/Hydrochlorothiazide 1 tab PO DAILY@1200 01/29/15 02/14/20 [Diovan Hct 160-25 mg Tablet] metFORMIN HCL [Glucophage] 500 mg PO BID-W/MEALS 01/29/15 02/14/20 Atenolol 12.5 mg PO HS 10/09/15 02/14/20 Apixaban [Eliquis] 5 mg PO BID-W/MEALS 11/18/16 02/14/20 Atorvastatin [Lipitor] 20 mg PO HS 12/24/18 02/14/20 Cholecalciferol [Vitamin D3 (25 5,000 unit PO DAILY 12/24/18 02/14/20 Mcg = 1000 Iu)] Pyridoxine HCl (Vitamin B6) 100 mg PO DAILY@1200 02/14/20 02/14/20 [Vitamin B-6] traMADol HCL [Ultram] 50 mg PO Q6HR PRN 02/14/20 02/14/20 Allergies Allergy/AdvReac Type Severity Reaction Status Date / Time Iodinated Contrast Media Allergy Severe Dyspnea,N/V Verified 02/14/20 07:58 [Iodinated Contrast Media - IV Dye] iodine Allergy Severe Dyspnea,N/V Verified 02/14/20 07:58 adhesive Allergy Rash/Hives Verified 02/14/20 07:58 Penicillins Allergy Rash/Hives Verified 02/14/20 07:58 Review of Systems ROS Statement: Those systems with pertinent positive or pertinent negative responses have been documented in the HPI. ROS Other: All systems not noted in ROS Statement are negative. Constitutional: Denies: fever, chills, weakness Respiratory: Denies: cough, dyspnea Cardiovascular: Denies: chest pain, palpitations, edema, syncope Gastrointestinal: Reports: nausea, vomiting. Denies: abdominal pain, diarrhea Musculoskeletal: Denies: back pain Skin: Denies: rash Neurological: Denies: headache, weakness, numbness Past Medical History Past Medical History: Atrial Fibrillation, Asthma, Diabetes Mellitus, Hypertension, Prostate Disorder, Thyroid Disorder Additional Past Medical History / Comment(s): steroids October 2016,bronchitis,arthritis, bulging disks neck and lower back, slow heart beat,enlarged prostate, cateract surgery History of Any Multi-Drug Resistant Organisms: None Reported Past Surgical History: Appendectomy, Heart Catheterization, Prostate Surgery Additional Past Surgical History / Comment(s): neck surgery, BPH/TURP, multiple cardioversion , growth removed from left ear Past Anesthesia/Blood Transfusion Reactions: No Reported Reaction Additional Past Anesthesia/Blood Transfusion Reaction / Comment(s): no hx blood transfusion Past Psychological History: No Psychological Hx Reported Smoking Status: Former smoker Past Alcohol Use History: Rare Past Drug Use History: None Reported - Past Family History Father Family Medical History: Cancer Additional Family Medical History / Comment(s): at age 91 or 92,colon CA Sister(s) Family Medical History: Cancer Additional Family Medical History / Comment(s): kidney,breast,leg Mother Family Medical History: CVA/TIA, Diabetes Mellitus Additional Family Medical History / Comment(s): heart problems, at age 83 or 84 General Exam Limitations: no limitations General appearance: alert, in no apparent distress Head exam: Present: atraumatic, normocephalic Eye exam: Present: normal appearance. Absent: scleral icterus, conjunctival injection Neck exam: Present: normal inspection, full ROM Respiratory exam: Present: normal lung sounds bilaterally. Absent: respiratory distress, wheezes, rales, rhonchi, stridor Cardiovascular Exam: Present: bradycardia, irregular rhythm, normal heart sounds. Absent: systolic murmur, diastolic murmur, rubs, gallop GI/Abdominal exam: Present: soft. Absent: distended, tenderness, guarding, rebound, rigid, mass Extremities exam: Present: normal inspection, normal capillary refill. Absent: pedal edema, calf tenderness Back exam: Present: normal inspection. Absent: CVA tenderness (R), CVA tenderness (L) Neurological exam: Present: alert Skin exam: Present: warm, intact, normal color, diaphoretic. Absent: rash Course Vital Signs 02/14/20 02/14/20 02/14/20 05:12 05:40 08:07 Temperature 97.5 F L 97.9 F Pulse Rate 59 L 50 L 52 L Respiratory 16 18 18 Rate Blood Pressure 161/106 146/98 118/88 O2 Sat by Pulse 96 97 100 Oximetry Medical Decision Making - Medical Decision Making Patient is 75-year-old man with diaphoresis, nausea and vomiting. He has had some left shoulder/chest wall pain going on for number days and believes that this is musculoskeletal. His EKG does not appear to be changed but patient will be admitted for serial cardiac enzymes to ensure that this does not represent angina versus missed AL. - Lab Data Result diagrams: 02/14/20 05:40 02/14/20 05:40 Lab Results 02/14/20 02/14/20 02/14/20 Range/Units 05:19 05:40 05:40 WBC 9.8 (3.8-10.6) k/uL RBC 4.97 (4.30-5.90) m/uL Hgb 14.7 (13.0-17.5) gm/dL Hct 44.2 (39.0-53.0) % MCV 89.0 (80.0-100.0) fL MCH 29.5 (25.0-35.0) pg MCHC 33.2 (31.0-37.0) g/dL RDW 13.4 (11.5-15.5) % Plt Count 200 (150-450) k/uL Neutrophils % 66 % Lymphocytes % 23 % Monocytes % 6 % Eosinophils % 4 % Basophils % 1 % Neutrophils # 6.5 (1.3-7.7) k/uL Lymphocytes # 2.3 (1.0-4.8) k/uL Monocytes # 0.6 (0-1.0) k/uL Eosinophils # 0.4 (0-0.7) k/uL Basophils # 0.1 (0-0.2) k/uL Sodium 139 (137-145) mmol/L Potassium 3.5 (3.5-5.1) mmol/L Chloride 104 (98-107) mmol/L Carbon Dioxide 26 (22-30) mmol/L Anion Gap 9 mmol/L BUN 14 (9-20) mg/dL Creatinine 0.63 L (0.66-1.25) mg/dL Est GFR (CKD-EPI)AfAm >90 (>60 ml/min/1.73 sqM) Est GFR (CKD-EPI)NonAf >90 (>60 ml/min/1.73 sqM) Glucose 182 H (74-99) mg/dL POC Glucose (mg/dL) 178 H (75-99) mg/dL POC Glu [employer] ID Lona Watson Calcium 9.0 (8.4-10.2) mg/dL Magnesium (1.6-2.3) mg/dL Total Bilirubin 0.6 (0.2-1.3) mg/dL AST 23 (17-59) U/L ALT 19 (4-49) U/L Alkaline Phosphatase 82 (38-126) U/L Troponin I (0.000-0.034) ng/mL Total Protein 6.5 (6.3-8.2) g/dL Albumin 3.9 (3.5-5.0) g/dL Amylase 53 (30-110) U/L Lipase 71 (23-300) U/L TSH (0.465-4.680) mIU/L Coronavirus (PCR) (Not Detected) 07/07/20 07/07/20 07/07/20 Range/Units 05:40 05:40 06:04 WBC (3.8-10.6) k/uL RBC (4.30-5.90) m/uL Hgb (13.0-17.5) gm/dL Hct (39.0-53.0) % MCV (80.0-100.0) fL MCH (25.0-35.0) pg MCHC (31.0-37.0) g/dL RDW (11.5-15.5) % Plt Count (150-450) k/uL Neutrophils % % Lymphocytes % % Monocytes % % Eosinophils % % Basophils % % Neutrophils # (1.3-7.7) k/uL Lymphocytes # (1.0-4.8) k/uL Monocytes # (0-1.0) k/uL Eosinophils # (0-0.7) k/uL Basophils # (0-0.2) k/uL Sodium (137-145) mmol/L Potassium (3.5-5.1) mmol/L Chloride (98-107) mmol/L Carbon Dioxide (22-30) mmol/L Anion Gap mmol/L BUN (9-20) mg/dL Creatinine (0.66-1.25) mg/dL Est GFR (CKD-EPI)AfAm (>60 ml/min/1.73 sqM) Est GFR (CKD-EPI)NonAf (>60 ml/min/1.73 sqM) Glucose (74-99) mg/dL POC Glucose (mg/dL) (75-99) mg/dL POC Glu [employer] ID Calcium (8.4-10.2) mg/dL Magnesium 1.8 (1.6-2.3) mg/dL Total Bilirubin (0.2-1.3) mg/dL AST (17-59) U/L ALT (4-49) U/L Alkaline Phosphatase (38-126) U/L Troponin I <0.012 (0.000-0.034) ng/mL Total Protein (6.3-8.2) g/dL Albumin (3.5-5.0) g/dL Amylase (30-110) U/L Lipase (23-300) U/L TSH 3.670 (0.465-4.680) mIU/L Coronavirus (PCR) Not Detected (Not Detected) - EKG Data -: EKG Interpreted by Me EKG shows normal: axis (Total), QRS complexes (Incomplete right bundle branch block.) Interpretation: nonspecific ST-T wave changes, other (The underlying rhythm appears to be atrial fibrillation with slow response at 54 bpm. ECG is similar to 2018.) Disposition Clinical Impression: Diaphoresis, Vomiting Disposition: ADMITTED IP TO THIS HOSP Condition: Stable
--- NOTE | 2020-02-14 07:15 | CT ---
EXAM: CT Head Without Intravenous Contrast CLINICAL HISTORY: Headache TECHNIQUE: Axial computed tomography images of the head/brain without intravenous contrast. CTDI is 49.1 mGy and DLP is 1197 mGy-cm. This CT exam was performed using one or more of the following dose reduction techniques: automated exposure control, adjustment of the mA and/or kV according to patient size, and/or use of iterative reconstruction technique. COMPARISON: December 24, 2018. FINDINGS: Brain: Unremarkable. No acute intracranial hemorrhage, edema or abnormal mass-effect. Ventricles: Unremarkable. No ventriculomegaly. Bones/joints: Unremarkable. No acute fracture. Soft tissues: Unremarkable. Sinuses: Unremarkable as visualized. No acute sinusitis. Mastoid air cells: Unremarkable as visualized. No mastoid effusion. IMPRESSION: No acute intracranial findings.
[2020-02-14] MEDS ORDERED: NITROGLYCERIN SL TABS 0.4 MG TAB SUBLINGUAL PRN (07:35)
[2020-02-14 08:09] VITALS: BP 118/88; PULSE 52; TEMP 97.9
[2020-02-14 09:25] LABS: Glucose,Whole Blood 173 mg/dL (75-99)
[2020-02-14 11:48] LABS: Glucose,Whole Blood 148 mg/dL (75-99)
[2020-02-14] MEDS ORDERED: PYRIDOXINE 50 MG TAB PO SCH (12:00)
[2020-02-14] MEDS ORDERED: HYDROCHLOROTHIAZIDE 25 MG TAB PO SCH (12:00)
[2020-02-14] MEDS ORDERED: VALSARTAN 160 MG TAB PO SCH (12:00)
--- NOTE | 2020-02-14 12:34 | P.CRDCN ---
History of Present Illness History of present illness: HISTORY OF PRESENTING ILLNESS This is a pleasant 75-year-old male past medical history significant for on a persistent atrial fibrillation maintained on long-term anticoagulation, hypertension, dyslipidemia, diabetes mellitus, hypothyroidism and asthma. He follows in the office with Dr. Adrian. We have been asked to see in consultation for possible angina. He is seen and examined resting comfortably in bed in no acute distress. He states approximately 2 weeks ago he injured his left shoulder while doing some heavy gardening. He has been following at his primary care office along with a visit to the urgent care. The discomfort in the left shoulder is described as an achy sensation that has been rather constant since the initial injury with episodes of worsening. He states when he turns his head to the left or lifts his left shoulder pain is intensified. He initially was p rescribed Tylenol with Codeine along with a muscle relaxer however this medication made him feel groggy and disoriented so he stopped taking. He saw his primary care physician yesterday and was started on tramadol. He took one pill last night at 10 PM and went to sleep. He woke up at 3 AM diaphoretic and nauseated. He got up to the bathroom and did vomit. He changed his clothes and went back to bed. He woke up 30 minutes later again diaphoretic and nauseated. On arrival to the emergency department he was having ongoing nausea and vomiting. He denies having symptoms of precordial chest pain, shortness of breath, dizziness or palpitations. His nausea has subsided since arrival. DIAGNOSTICS EKG reveals atrial fibrillation heart rate of 54, incomplete right bundle branch block, T-wave inversions laterally. Telemetry tracings reveal atrial fibrillation. Chest xray negative for an acute cardiopulmonary process. Laboratory reviewed, CBC unremarkable, sodium 139, potassium 3.5, creatinine 0.63, cardiac enzymes negative 2. Current cardiac medications include Eliquis 5 mg twice a day, atenolol 12.5 mg at bedtime, atorvastatin 20 mg at bedtime, amlodipine 5 mg daily and valsarta n/HCTZ 160/25 mg daily at noon time. Cardiac catheterizatin 2015 revealed mild non-obstructive triple vessel disease. REVIEW OF SYSTEMS At the time of my exam: CONSTITUTIONAL: Denies fever or chills. CARDIOVASCULAR: Denies chest pain, shortness of breath, orthopnea, PND or palpitations. RESPIRATORY: Denies cough. GASTROINTESTINAL: Denies abdominal pain, diarrhea, constipation, nausea or vomiting. MUSCULOSKELETAL: Denies myalgias. NEUROLOGIC: Denies numbness, tingling or weakness. ENDOCRINE: Denies fatigue, weight change, polydipsia or polyurina. GENITOURINARY: Denies burning, hematuria or urgency with micturation. HEMATOLOGIC: Denies history of anemia or bleeding. PHYSICAL EXAMINATION Blood pressure 118/88 heart rate 52 afebrile and maintaining oxygen saturation on room air. CONSTITUTIONAL: No apparent distress. HEENT: Head is normocephalic. Pupils are equal, round. Sclerae anicteric. Mucous membranes of the mouth are moist. No JVD. No carotid bruit. CHEST EXAMINATION: Lungs are clear to auscultation. No chest wall tenderness is noted on palpation or with deep breathing. HEART EXAMINATION: Irregular rate and rhythm. S1, S2 heard. Systolic ejection murmur at the left sternal border, no gallops or rub. ABDOMEN: Soft, nontender. Positive bowel sounds. EXTREMITIES: 2+ peripheral pulses, no lower extremity edema and no calf tenderness. NEUROLOGIC EXAMINATION: Patient is awake, alert and oriented x3. ASSESSMENT Nausea and vomiting and diaphoresis. Likely related to tramadol. No chest pain or shortness of breath. Left shoulder pain, musculoskeletal Chronic persistent atrial fibrillation on long-term anticoagulation Hypertension Dyslipidemia Diabetes mellitus Hypothyroidism PLAN An acute coronary event has been ruled out. Obtain 2D echocardiogram to assess cardiac structure and function. Pain is atypical for angina and related to musculoskeletal injury. Heart rates run in the high 40-50 range. He is asymptomatic. Check TSH and magnesium level. Thank you kindly for this consultation. Nurse Practitioner note has been reviewed, I agree with a documented findings and plan of care. Patient was seen and examined. 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 History of Any Multi-Drug Resistant Organisms: None Reported Past Surgical History: Appendectomy, Cardiac Ablation, Heart Catheterization, Prostate Surgery Additional Past Surgical History / Comment(s): TEEs, cardioversions, cervical surgery/rods, L ear benign growth removed, bilateral cataract removals with R eye lens implants. Past Anesthesia/Blood Transfusion Reactions: No Reported Reaction Additional Past Anesthesia/Blood Transfusion Reaction / Comment(s): no hx blood transfusion Smoking Status: Former smoker - Past Family History Father Family Medical History: Cancer Additional Family Medical History / Comment(s): at age 94,colon CA Sister(s) Family Medical History: Cancer Additional Family Medical History / Comment(s): kidney,breast cancers Mother Family Medical History: CVA/TIA, Diabetes Mellitus Additional Family Medical History / Comment(s): Mother had heart problems. She at 84 from a CVA Medications and Allergies Home Medications Medication Instructions Recorded Confirmed Type Levothyroxine Sodium [Synthroid] 125 mcg PO AC-BRKFST 01/26/15 02/14/20 History amLODIPine [Norvasc] 5 mg PO QAM 01/26/15 02/14/20 History Valsartan/Hydrochlorothiazide 1 tab PO DAILY@1200 01/29/15 02/14/20 History [Diovan Hct 160-25 mg Tablet] metFORMIN HCL [Glucophage] 500 mg PO BID-W/MEALS 01/29/15 02/14/20 History Atenolol 12.5 mg PO HS 10/09/15 02/14/20 History Apixaban [Eliquis] 5 mg PO BID-W/MEALS 11/18/16 02/14/20 History Atorvastatin [Lipitor] 20 mg PO HS 12/24/18 02/14/20 History Cholecalciferol [Vitamin D3 (25 5,000 unit PO DAILY 12/24/18 02/14/20 History Mcg = 1000 Iu)] Pyridoxine HCl (Vitamin B6) 100 mg PO DAILY@1200 02/14/20 02/14/20 History [Vitamin B-6] traMADol HCL [Ultram] 50 mg PO Q6HR PRN 02/14/20 02/14/20 History Allergies Allergy/AdvReac Type Severity Reaction Status Date / Time Iodinated Contrast Media Allergy Severe Dyspnea,N/V Verified 02/14/20 07:58 [Iodinated Contrast Media - IV Dye] iodine Allergy Severe Dyspnea,N/V Verified 02/14/20 07:58 adhesive Allergy Rash/Hives Verified 02/14/20 07:58 Penicillins Allergy Rash/Hives Verified 02/14/20 07:58 Physical Exam Vitals: Vital Signs Temp Pulse Resp BP Pulse Ox 02/14/20 08:07 97.9 F 52 L 18 118/88 100 02/14/20 05:40 50 L 18 146/98 97 02/14/20 05:12 97.5 F L 59 L 16 161/106 96 Intake and Output 02/13/20 02/14/20 02/14/20 22:59 06:59 14:59 Other: Weight 98.883 kg 98.883 kg Results 02/14/20 05:40 02/14/20 05:40 Cardiac Enzymes 02/14/20 02/14/20 02/14/20 Range/Units 05:40 05:40 09:26 AST 23 (17-59) U/L Troponin I <0.012 <0.012 (0.000-0.034) ng/mL CBC 02/14/20 Range/Units 05:40 WBC 9.8 (3.8-10.6) k/uL RBC 4.97 (4.30-5.90) m/uL Hgb 14.7 (13.0-17.5) gm/dL Hct 44.2 (39.0-53.0) % Plt Count 200 (150-450) k/uL Comprehensive Metabolic Panel 02/14/20 Range/Units 05:40 Sodium 139 (137-145) mmol/L Potassium 3.5 (3.5-5.1) mmol/L Chloride 104 (98-107) mmol/L Carbon Dioxide 26 (22-30) mmol/L BUN 14 (9-20) mg/dL Creatinine 0.63 L (0.66-1.25) mg/dL Glucose 182 H (74-99) mg/dL Calcium 9.0 (8.4-10.2) mg/dL AST 23 (17-59) U/L ALT 19 (4-49) U/L Alkaline Phosphatase 82 (38-126) U/L Total Protein 6.5 (6.3-8.2) g/dL Albumin 3.9 (3.5-5.0) g/dL Current Medications Generic Name Dose Route Start Last Admin Trade Name Freq PRN Reason Stop Dose Admin Amlodipine Besylate 5 mg 02/15/20 09:00 Norvasc PO QAM [facility] Apixaban 5 mg 02/14/20 17:30 Eliquis PO BID-W/MEALS [facility] Atenolol 12.5 mg 02/14/20 21:00 Tenormin PO HS [facility] Atorvastatin Calcium 20 mg 02/14/20 21:00 Lipitor PO HS [facility] Cholecalciferol 5,000 unit 02/15/20 09:00 Vitamin D3 (25 Mcg = 1000 Iu) PO DAILY [facility] Hydrochlorothiazide 25 mg 02/14/20 12:00 Hydrodiuril PO DAILY@1200 [facility] Levothyroxine Sodium 125 mcg 02/15/20 06:30 Synthroid PO AC-BRKFST@0630 [facility] Metformin HCl 500 mg 02/14/20 17:30 Glucophage PO BID-W/MEALS [facility] Nitroglycerin 0.4 mg 02/14/20 07:35 Nitrostat SUBLINGUAL Q5M PRN Chest Pain Pyridoxine HCl 100 mg 02/14/20 12:00 Vitamin B-6 PO DAILY@1200 [facility] Valsartan 160 mg 02/14/20 12:00 Diovan PO DAILY@1200 [facility] Intake and Output 02/13/20 02/14/20 02/14/20 22:59 06:59 14:59 Other: Weight 98.883 kg 98.883 kg Patient Weight 02/15/20 06:59 Weight 98.883 kg 02/14/20 05:40 02/14/20 05:40
[2020-02-14 12:49] LABS: Magnesium 1.8 mg/dL (1.6-2.3)
--- NOTE | 2020-02-14 13:38 | P.HPIM ---
History of Present Illness H&P Date: 02/14/20 Chief Complaint: Perspiration History of presenting complaint: This is a pleasant 75-year-old patient of Dr. Duque. Chronic stable medical conditions include atrial fibrillation, asthma, diabetes, hyperlipidemia, hypertension, osteoarthritis, hypothyroid, small bilateral carotid artery aneurysm being monitored, epis type II, BPH with surgery, osteoarthritis, cervical bulging disc, low back and bilateral hip pain. Patient about 3 weeks ago started having pain in the left shoulder tenderness in the muscle and was to be moved. Went and saw Dr. Duque is mid-level practitioner [place] patient was given medications. Really did not help much. Patient came back to see Dr. Duque. He was switched over to Ultram. Tylenol 3 was discontinued. About 3:00 this morning patient woke up going in sweat and vomited large times 2 with Kymberly biting. Also had loose stools. Slight abdominal discomfort. Does not chest pain. [place] a bit dizzy. Decided to come in. Concern was in the ER to rule out a cardiac cause. Since then patient is feeling better. After throwing up. A few times. The previous night patient eaten a piece of bread with cheese that was from the fridge.. Also avocado. Review of systems: GEN.: Tired, perspiration EYES: None HEENT: None NECK: None RESPIRATORY: None CARDIOVASCULAR: [No chest pain GASTROINTESTINAL: None GENITOURINARY: None MUSCULOSKELETAL: Joint pains LYMPHATICS: None HEMATOLOGICAL: None PSYCHIATRY: None NEUROLOGICAL: None Past medical history to include: Atrophic depression, asthma, diabetes, hyperlipidemia, hypertension, osteoarthritis, BPH with surgery, hypothyroid, small bilateral carotid artery aneurysm, diabetes type 2, cervical bulging disc, occasional low back bilateral hip pain Social history: . Patient smokes is age of 15 on and off to 1985 about a pack a day. Alcohol rarely. Retired INVESTIGATIONS, reviewed in the clinical context: White count 9.8 hemoglobin 14.7 potassium 3.5 creatinine 0.63 Accu-Cheks 170 10/09/1948 Troponin I 3 negative EKG tracing personally reviewed by me-atrial fibrillation heart rate of 54 Computed tomography scan of brain negative Chest x-ray film personally reviewed by me-some cardiomegaly, lung shipley clear Assessment: -This is a patient now about 3:00 in the morning woke up with bouts of perspiration nausea vomiting diarrhea. Appears to be acute food poisoning likely viral gastroenteritis. No obvious self-limiting condition. Patient is feeling better but this morning. -Left shoulder pain likely musculoskeletal but reproducible pain as per history is on for 3 weeks. -Cardiac cause being ruled out -Persistent atrial fibrillation, chronically on eliquis -Essential hypertension -Hyperlipidemia -Hypothyroid -Diabetes mellitus type 2 -Small bilateral carotid artery aneurysm being monitored as an outpatient Plan: Home medications resumed. Cardiology she was consulted. Care was discussed with the patient. Troponins have been negative. Patient advised about a soft bland diet. Questions were answered. Past Medical History Past Medical History: Atrial Fibrillation, Asthma, Diabetes Mellitus, Hyperl ipidemia, Hypertension, Osteoarthritis (OA), Prostate Disorder, Thyroid Disorder, Vascular Disorder Additional Past Medical History / Comment(s): Bradycardia, small bilateral caratid artery aneurysms being monitored, NIDDM type II, bronchitis, BPH with surgery, vertigo, hypothyroid, arthtitis in multiple joints, cervial bulging discs, occasional low back/bilateral hip pain. History of Any Multi-Drug Resistant Organisms: None Reported Past Surgical History: Appendectomy, Cardiac Ablation, Heart Catheterization, Prostate Surgery Additional Past Surgical History / Comment(s): TEEs, cardioversions, cervical surgery/rods, L ear benign growth removed, bilateral cataract removals with R eye lens implants. Past Anesthesia/Blood Transfusion Reactions: No Reported Reaction Additional Past Anesthesia/Blood Transfusion Reaction / Comment(s): no hx blood transfusion Smoking Status: Former smoker - Past Family History Father Family Medical History: Cancer Additional Family Medical History / Comment(s): at age 94,colon CA Sister(s) Family Medical History: Cancer Additional Family Medical History / Comment(s): kidney,breast cancers Mother Family Medical History: CVA/TIA, Diabetes Mellitus Additional Family Medical History / Comment(s): Mother had heart problems. She at 84 from a CVA Medications and Allergies Home Medications Medication Instructions Recorded Confirmed Type Levothyroxine Sodium [Synthroid] 125 mcg PO AC-BRKFST 01/26/15 02/14/20 History amLODIPine [Norvasc] 5 mg PO QAM 01/26/15 02/14/20 History Valsartan/Hydrochlorothiazide 1 tab PO DAILY@1200 01/29/15 02/14/20 History [Diovan Hct 160-25 mg Tablet] metFORMIN HCL [Glucophage] 500 mg PO BID-W/MEALS 01/29/15 02/14/20 History Atenolol 12.5 mg PO HS 10/09/15 02/14/20 History Apixaban [Eliquis] 5 mg PO BID-W/MEALS 11/18/16 02/14/20 History Atorvastatin [Lipitor] 20 mg PO HS 12/24/18 02/14/20 History Cholecalciferol [Vitamin D3 (25 5,000 unit PO DAILY 12/24/18 02/14/20 History Mcg = 1000 Iu)] Pyridoxine HCl (Vitamin B6) 100 mg PO DAILY@1200 02/14/20 02/14/20 History [Vitamin B-6] traMADol HCL [Ultram] 50 mg PO Q6HR PRN 02/14/20 02/14/20 History Allergies Allergy/AdvReac Type Severity Reaction Status Date / Time Iodinated Contrast Media Allergy Severe Dyspnea,N/V Verified 02/14/20 07:58 [Iodinated Contrast Media - IV Dye] iodine Allergy Severe Dyspnea,N/V Verified 02/14/20 07:58 adhesive Allergy Rash/Hives Verified 02/14/20 07:58 Penicillins Allergy Rash/Hives Verified 02/14/20 07:58 Physical Exam Vitals: Vital Signs Temp Pulse Resp BP Pulse Ox 02/14/20 08:07 97.9 F 52 L 18 118/88 100 02/14/20 05:40 50 L 18 146/98 97 02/14/20 05:12 97.5 F L 59 L 16 161/106 96 Intake and Output 02/13/20 02/14/20 02/14/20 22:59 06:59 14:59 Other: Weight 98.883 kg 98.883 kg Results CBC & Chem 7: 02/14/20 05:40 02/14/20 05:40 Labs: Abnormal Lab Results - Last 24 Hours (Table) 02/14/20 02/14/20 02/14/20 Range/Units 05:19 05:40 09:22 Creatinine 0.63 L (0.66-1.25) mg/dL Glucose 182 H (74-99) mg/dL POC Glucose (mg/dL) 178 H 173 H (75-99) mg/dL Thrombosis Risk Factor Assmnt - Choose All That Apply Any of the Below Risk Factors Present?: Yes Each Factor Represents 1 point: Obesity (BMI >25) Other Risk Factors: Yes Each Risk Factor Represents 3 Points: Age 75 years or older Other congenital or acquired thrombophilia - If yes, enter type in comment: No Thrombosis Risk Factor Assessment Total Risk Factor Score: 4 Thrombosis Risk Factor Assessment Level: Moderate Risk
[2020-02-14] MEDS ORDERED: APIXABAN 5 MG TAB PO SCH (17:30)
[2020-02-14] MEDS ORDERED: metFORMIN 500 MG TAB PO SCH (17:30)
[2020-02-14] MEDS ORDERED: ATENOLOL 25 MG TAB PO SCH (21:00)
[2020-02-14] MEDS ORDERED: ATORVASTATIN 20 MG TAB PO SCH (21:00)
--- NOTE | 2020-02-14 22:42 | P.DS ---
Providers Date of admission: 02/14/20 07:35 Expected date of discharge: 02/14/20 Attending physician: Luis M Betts Consults: 02/14/20 07:35 Consult Physician Urgent Consulting Provider: Araceli Adrian Consult Reason/Comments: possible angina Do you want consulting provider notified?: Yes Primary care physician: Regan [facility] Course: Chief Complaint: Perspiration History of presenting complaint: This is a pleasant 75-year-old patient of Dr. Duque. Chronic stable medical conditions include atrial fibrillation, asthma, diabetes, hyperlipidemia, hypertension, osteoarthritis, hypothyroid, small bilateral carotid artery aneurysm being monitored, epis type II, BPH with surgery, osteoarthritis, cervical bulging disc, low back and bilateral hip pain. Patient about 3 weeks ago started having pain in the left shoulder tenderness in the muscle and was to be moved. Went and saw Dr. Duque is mid-level practitioner [place] patient was given medications. Really did not help much. Patient came back to see Dr. Duque. He was switched over to Ultram. Tylenol 3 was discontinued. About 3:00 this morning patient woke up going in sweat and vomited large times 2 with no blood. Also had loose stools. Slight abdominal discomfort. Does not chest pain. [place] a bit dizzy. Decided to come in. Concern was in the ER to rule out a cardiac cause. Since then patient is feeling better. After throwing up. A few times. The previous night patient eaten a piece of bread with cheese that was from the fridge.. Also avocado. Admitted with a diagnosis of viral gastroenteritis. Improved. Given IV fluids. Left shoulder pain musculoskeletal. Seen by cardiology. Care was discussed with the patient. Reassured. Consultation: Dr. Adrian from cardiology On examination: VITAL SIGNS: 97.9, 52, 18, 118/88, 2% room air GENERAL APPEARANCE: Sitting at the edge of bed, comfortable. HEENT: Normal external appearance of nose and ear. Oral cavity normal EYES: Pupils equal. Conjunctiva normal. NECK: JVD not raised. Mass not palpable. RESPIRATORY: Respiratory effort normal. Lungs clear to auscultation. CARDIOVASCULAR: First and second sounds normal. No edema. ABDOMEN: Soft. Liver and spleen not palpable. No tenderness. No mass palpable. PSYCHIATRY: Alert and oriented x3. Mood and affect normal. INVESTIGATIONS, reviewed in the clinical context: White count 9.8 hemoglobin 14.7 potassium 3.5 creatinine 0.63 Accu-Cheks 170 10/09/1948 Troponin I 3 negative EKG tracing personally reviewed by me-atrial fibrillation heart rate of 54 Computed tomography scan of brain negative Chest x-ray film personally reviewed by me-some cardiomegaly, lung shipley clear Assessment: -This is a patient now about 3:00 in the morning woke up with bouts of perspiration nausea vomiting diarrhea. Appears to be acute food poisoning likely viral gastroenteritis. No obvious self-limiting condition. Patient is feeling better but this morning. -Left shoulder pain likely musculoskeletal but reproducible pain as per history is on for 3 weeks. -Cardiac cause being ruled out -Persistent atrial fibrillation, chronically on eliquis -Essential hypertension -Hyperlipidemia -Hypothyroid -Diabetes mellitus type 2 -Small bilateral carotid artery aneurysm being monitored as an outpatient Disposition: Home Patient Condition at Discharge: Stable Plan - Discharge Summary Discharge Rx Participant: No New Discharge Prescriptions: Continue amLODIPine [Norvasc] 5 mg PO QAM Levothyroxine Sodium [Synthroid] 125 mcg PO AC-BRKFST metFORMIN HCL [Glucophage] 500 mg PO BID-W/MEALS Valsartan/Hydrochlorothiazide [Diovan Hct 160-25 mg Tablet] 1 tab PO D AILY@1200 Apixaban [Eliquis] 5 mg PO BID-W/MEALS Cholecalciferol [Vitamin D3 (25 Mcg = 1000 Iu)] 5,000 unit PO DAILY Atorvastatin [Lipitor] 20 mg PO HS traMADol HCL [Ultram] 50 mg PO Q6HR PRN PRN Reason: Pain Pyridoxine HCl (Vitamin B6) [Vitamin B-6] 100 mg PO DAILY@1200 No Action Atenolol 12.5 mg PO HS Discharge Medication List Levothyroxine Sodium [Synthroid] 125 mcg PO AC-BRKFST 01/26/15 [History] amLODIPine [Norvasc] 5 mg PO QAM 01/26/15 [History] Valsartan/Hydrochlorothiazide [Diovan Hct 160-25 mg Tablet] 1 tab PO DAILY@1200 01/29/15 [History] metFORMIN HCL [Glucophage] 500 mg PO BID-W/MEALS 01/29/15 [History] Atenolol 12.5 mg PO HS 10/09/15 [History] Apixaban [Eliquis] 5 mg PO BID-W/MEALS 11/18/16 [History] Atorvastatin [Lipitor] 20 mg PO HS 12/24/18 [History] Cholecalciferol [Vitamin D3 (25 Mcg = 1000 Iu)] 5,000 unit PO DAILY 12/24/18 [History] Pyridoxine HCl (Vitamin B6) [Vitamin B-6] 100 mg PO DAILY@1200 02/14/20 [History] traMADol HCL [Ultram] 50 mg PO Q6HR PRN 02/14/20 [History] Follow up Appointment(s)/Referral(s): Araceli Adrian MD [STAFF PHYSICIAN] - 02/24/20 11:00 am (with Crystal) Regan Duque DO [Primary Care Provider] - 02/17/20 11:00 am Patient Instructions/Handouts: Gastroenteritis (DC) Discharge Disposition: HOME SELF-CARE
[2020-02-15] MEDS ORDERED: LEVOTHYROXINE 125 MCG TAB PO SCH (06:30)
[2020-02-15] MEDS ORDERED: ASPIRIN 325 MG TAB PO SCH (09:00)
[2020-02-15] MEDS ORDERED: amLODIPine 5 MG TAB PO SCH (09:00)
[2020-02-15] MEDS ORDERED: CHOLECALCIFEROL 1,000 UNIT TAB PO SCH (09:00)
--- NOTE | 2020-02-15 16:00 | ECHOF ---
Referral Reason:hx afib MEASUREMENTS -------- HEIGHT: 172.7 cm WEIGHT: 98.9 kg BP: 118/88 RVIDd: 3.4 cm (< 3.3) IVSd: 1.3 cm (0.6 - 1.1) LVIDd: 4.9 cm (3.9 - 5.3) LVPWd: 1.3 cm (0.6 - 1.1) IVSs: 2.0 cm LVIDs: 3.9 cm LVPWs: 1.6 cm LA Diam: 4.4 cm (2.7 - 3.8) LAESV Index (A-L): 32.75 ml/m Ao Diam: 3.9 cm (2.0 - 3.7) AV Cusp: 2.5 cm (1.5 - 2.6) MV EXCURSION: 17.961 mm (> 18.000) MV EF SLOPE: 146 mm/s (70 - 150) EPSS: 0.4 cm AR PHT: 745 ms RAP: 5.00 mmHg RVSP: 36.98 mmHg FINDINGS -------- Atrial fibrillation. This was a technically adequate study. The left ventricular size is normal. There is mild concentric left ventricular hypertrophy. Overa ll left ventricular systolic function is normal with, an EF between 55 - 60 %. The right ventricle is normal in size. LA is midly dilated 29-33ml/m2. The right atrial size is normal. Interatrial and interventricular septum intact. The aortic valve is trileaflet and appears structurally normal. There is mild aortic regurgitation. The mitral valve is normal. [id number]-[id number] mitral regurgitation is present. Mild tricuspid regurgitation present. There is mild pulmonary hypertension. The right ventricular systolic pressure, as measured by Doppler, is 36.98mmHg. Trace/mild (physiologic) pulmonic regurgitation. The aortic root is dilated measuring 3.9cm. Normal inferior vena cava with normal inspiratory collapse consistent with estimated right atrial pre ssure of 5 mmHg. There is no pericardial effusion. CONCLUSIONS -------- 1. There is mild concentric left ventricular hypertrophy. 2. Overall left ventricular systolic function is normal with, an EF between 55 - 60 %. 3. LA is midly dilated 29-33ml/m2. 4. There is mild aortic regurgitation. 5. Jzjp-mv-tgrtsndn mitral regurgitation is present. 6. Mild tricuspid regurgitation present. 7. There is mild pulmonary hypertension. 8. Trace/mild (physiologic) pulmonic regurgitation. 9. The aortic root is dilated measuring 3.9cm. 10. There is no pericardial effusion. AUTOMOTIVE ELECTRICIAN: Lianna Lyons RDCS
== END 2020-02-14 13:38 | disposition home or self-care (01) ==
LOC: EC 05:08 → 1SOBS 07:35
PROVIDERS: ADMIT Hospitalist; ATTEND Hospitalist
DX: A08.4 Viral intestinal infection, unspecified (principal); M25.512 Pain in left shoulder; I48.19 Other persistent atrial fibrillation; I10 Essential (primary) hypertension; E78.5 Hyperlipidemia, unspecified; I45.19 Other right bundle-branch block; R94.31 Abnormal electrocardiogram [ECG] [EKG]; R07.89 Other chest pain; E03.9 Hypothyroidism, unspecified; E11.9 Type 2 diabetes mellitus without complications; I72.0 Aneurysm of carotid artery; J45.909 Unspecified asthma, uncomplicated; M19.90 Unspecified osteoarthritis, unspecified site; M50.20 Other cervical disc displacement, unspecified cervical region; M51.26 Other intervertebral disc displacement, lumbar region; F32.89 Other specified depressive episodes; I08.3 Combined rheumatic disorders of mitral, aortic and tricuspid valves; I27.20 Pulmonary hypertension, unspecified; F17.210 Nicotine dependence, cigarettes, uncomplicated; E66.9 Obesity, unspecified; Z68.33 Body mass index [BMI] 33.0-33.9, adult; Z03.818 Encounter for observation for suspected exposure to other biological agents ruled out; Z79.890 Hormone replacement therapy; Z79.899 Other long term (current) drug therapy; Z79.84 Long term (current) use of oral hypoglycemic drugs; Z79.01 Long term (current) use of anticoagulants; Z91.041 Radiographic dye allergy status; Z91.048 Other nonmedicinal substance allergy status; Z91.09 Other allergy status, other than to drugs and biological substances; Z88.0 Allergy status to penicillin; Z87.09 Personal history of other diseases of the respiratory system; Z86.69 Personal history of other diseases of the nervous system and sense organs; Z98.41 Cataract extraction status, right eye; Z98.42 Cataract extraction status, left eye; Z96.1 Presence of intraocular lens; Z87.438 Personal history of other diseases of male genital organs; Z90.79 Acquired absence of other genital organ(s); Z90.49 Acquired absence of other specified parts of digestive tract; Z98.890 Other specified postprocedural states; Z80.0 Family history of malignant neoplasm of digestive organs; Z80.51 Family history of malignant neoplasm of kidney; Z80.3 Family history of malignant neoplasm of breast; Z80.8 Family history of malignant neoplasm of other organs or systems; Z82.3 Family history of stroke; Z83.3 Family history of diabetes mellitus; Z82.49 Family history of ischemic heart disease and other diseases of the circulatory system
CPT/HCPCS: 96374; 99285; 36415; 93005; 93306; 80053; 84443; 82150; 83690; 83735; 84484; 85025; 71046; 70450; G0378; U0003; J2405

== ENCOUNTER → 2020-03-16 | Outpatient (CLI) | payer MEDICARE ==
--- NOTE | 2020-03-18 21:40 | MR ---
EXAMINATION TYPE: MR cervical spine wo con DATE OF EXAM: 03/16/2020 COMPARISON: MRI cervical spine 05/02/2017. HISTORY: Cervicalgia, fusion of spine, pain in left shoulder and arm TECHNIQUE: Multiplanar, multisequence images of the cervical spine were acquired. Anterior fusion changes of C3-C6, with limited visualization of the C3-C4 and C4-C5 discs. C2-C3: No evidence for degenerative disc disease. No disc bulge/herniation or protrusion. No Canal stenosis. Foramina are patent bilaterally. C3-C4: No disc bulge/herniation or protrusion. No Canal stenosis. Moderate left neural foramina narr owing. C4-C5: Posterior bulge and superimposed central disc protrusion. Moderate Canal stenosis. There is in ternal T2 hyperintense signal within the cervical spinal cord decreased versus 2017 comparison. Jess pili are severely narrowed bilaterally. C5-C6: No evidence for degenerative disc disease. No disc bulge/herniation or protrusion. No Canal stenosis. There is minimal internal T2 hyperintense signal within the cervical spinal cord decreased versus 2017 comparison. Foramina are severely narrowed on the right and mildly narrowed on the left. C6-C7: Moderate posterior disc bulge with superimposed left subarticular disc protrusion. Mild narrow ing of the left lateral recess. Foramina are severely narrowed on the right and mildly narrowed on t he left. C7-T1: Mild posterior disc bulge. No Canal stenosis. Foramina are mildly narrowed bilaterally. Cervical segments are intact. There is normal alignment. Craniovertebral junction relationships are within normal limits. IMPRESSION: 1. Anterior spinal fusion of C3-C6, with decreased disc bulging and canal stenosis of these levels ve rsus 2017 MRI comparison. Mild T2 hyperintense signal at the C4-5 and C5-6 levels of the cervical spi nal cord are seen, also decreased versus 2017 comparison, likely degree of chronic myelopathy. 2. No high-grade canal stenosis. 3. Multilevel neural foramina narrowing, most severe at C4-C5.
== END | disposition home or self-care (01) ==
LOC: RADMRIMAIN 08:32
PROVIDERS: ATTEND Specialist
DX: M48.02 Spinal stenosis, cervical region (principal); M50.221 Other cervical disc displacement at C4-C5 level; M43.22 Fusion of spine, cervical region; Z98.1 Arthrodesis status
CPT/HCPCS: 72141

== ENCOUNTER → 2020-05-19 | Outpatient (CLI) | payer MEDICARE ==
--- NOTE | 2020-05-19 08:40 | MR ---
EXAMINATION TYPE: MR angio head wo con DATE OF EXAM: 05/19/2020 COMPARISON: 03/11/2019 HISTORY: Cerebral aneurysm,dizziness TECHNIQUE: Utilizing 3-D [id number] intracranial MRA of the lower [place] of [place] was performed. FINDINGS: The internal carotid arteries bifurcate normally into A1 and M1 segments. The A2 segments are normal. Middle cerebral artery branches are norm al. In the cavernous portion of the right internal carotid artery on previously described 1 mm possible aneurysm is stable in appearance.. 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 Anterior communicating artery is patent. The right posterior communicating artery is patent but ex tremely diminutive. The left posterior communicating artery is patent but extremely diminutive. Vertebrobasilar arteries within the [id number]-mvrm are patent. Left vertebral artery is dominant and t here is a tortuous course of the diminutive right vertebral artery. Posterior cerebral vasculature is normal. No suspicious aneurysm or aneurysmal dilatation is evident in the posterior circulation. No obstructions are identified throughout. No significant flow-limiting stenosis is evident throughout. IMPRESSION: 1. 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
== END | disposition home or self-care (01) ==
LOC: RADMRIMAIN 07:55
PROVIDERS: ATTEND Specialist
DX: I67.1 Cerebral aneurysm, nonruptured (principal)
CPT/HCPCS: 70544

== ENCOUNTER → 2020-07-20 | Day surgery (SDC) | payer MEDICARE ==
[2020-07-18 12:14] VITALS: BMI 33.3
[~2020-07-20] MED LIST changes: -HYDROmorphone 1 MG/ML 1 ML SYRINGE IVP PRN; +LIDOCAINE 1% INJ 10MG/ML (20 ML MDV) ONE; +PROPOFOL 10 MG/ML 20 ML VIAL IV ONE; -SODIUM CHLORIDE 0.9% 1,000 ML IV SCH
[2020-07-20 08:03] LABS: Glucose,Whole Blood 123 mg/dL (75-99)
--- NOTE | 2020-07-20 08:34 | P.PCN ---
Date of Procedure: 07/20/20 Procedure(s) Performed: Brief history: Patient is a pleasant 75-year-old white male scheduled for an elective upper endoscopy as well as colonoscopy as a part of evaluation of GERD/change in bowel habits and prior history of colon polyps. Procedure performed: Esophagogastroduodenoscopy with biopsy Colonoscopy with snare polypectomy Preoperative diagnosis: GERD/change in bowel habits and prior history of colon polyps Anesthesia: MAC Procedure: After informed consent was obtained from the patient was brought into the endoscopy unit and IV sedation was administered by anesthesia under continuous monitoring. Initially upper endoscopy was done. The Olympus GF 160 video endoscope was inserted inserted into the mouth and esophagus intubated without any difficulty and was gradually advanced into the stomach and duodenum and carefully examined. The bulb and second part of the duodenum appeared normal. The scope was then withdrawn into the stomach adequately insufflated with air and upon careful examination the antrum and body,had mild diffuse gastritis and biopsies were done from this area. The cardia and fundus appeared normal. The scope was then withdrawn into the esophagus. The GE junction was located at 40 cm to the incisors. It appeared regular with no erythema erosions or ulcerations. Rest of the esophagus appeared normal. Patient tolerated the procedure well. At this time the patient continued to remain sedation. Initial digital rectal examination was normal. Olympus CF 160 video colonoscope was then inserted into the rectum and gradually advanced to the cecum without any difficulty. Careful examination was performed as the scope was gradually being withdrawn. The prep was excellent. The cecum appeared normal. In the ascending colon there was a 2 mm polyp that was removed by cold biopsy. Rest of the, ascending colon, transverse colon,appeared normal. The descending colon there was a 1 cm flat polyp removed by polypectomy. Rest of the descending colon, sigmoid colon and rectum appeared normal. Retroflexion was performed in the rectum and no lesions were noted. Patient tolerated the procedure well. Impression: 1 Upper endoscopy revealed mild diffuse gastritis but no evidence of peptic ulcer disease or esophagitis] 2 Colonoscopy revealed 2 mm ascending colon polyp status post biopsy and a 1 cm descending colon polyp status post snare polypectomy Recommendattions: Findings of this examination were discussed with the patient as well as his family. He was advised to follow with the biopsy results. If the biopsy shows an adenoma he can have a repeat colonoscopy in 3-5 years]
[2020-07-20 08:37] VITALS: RESP 16
[2020-07-20 08:57] VITALS: BP 150/90; PULSE 76
== END ==
LOC: ORWHC2ENDO 07:17
PROVIDERS: ATTEND Internal Medicine Gastroenterology
DX: K63.5 Polyp of colon (principal); Z86.010 Personal history of colon polyps; K21.9 Gastro-esophageal reflux disease without esophagitis; I48.91 Unspecified atrial fibrillation; E78.5 Hyperlipidemia, unspecified; E07.9 Disorder of thyroid, unspecified; N40.0 Benign prostatic hyperplasia without lower urinary tract symptoms; Z98.1 Arthrodesis status; Z98.890 Other specified postprocedural states; Z79.84 Long term (current) use of oral hypoglycemic drugs; Z79.890 Hormone replacement therapy; Z79.01 Long term (current) use of anticoagulants; Z79.899 Other long term (current) drug therapy; Z88.0 Allergy status to penicillin; Z91.048 Other nonmedicinal substance allergy status
CPT/HCPCS: 88305; 88342; 45380; 45385; 43239; J2001; J2704

== ENCOUNTER → 2020-08-09 | Outpatient (CLI) | payer MEDICARE ==
[2020-08-09 09:18] LABS: Basophils # (A) 0.1 k/uL (0-0.2); Basophils % (A) 1 %; Eosinophils # (A) 0.2 k/uL (0-0.7); Eosinophils % (A) 3 %; HGB 15.1 gm/dL (13.0-17.5); Lymphocytes # (A) 2.8 k/uL (1.0-4.8); Lymphocytes % (A) 32 %; MCH 28.4 pg (25.0-35.0); MCHC 32.2 g/dL (31.0-37.0); MCV 88.1 fL (80.0-100.0); Mean Platelet Volume 7.1; Monocytes # (A) 0.5 k/uL (0-1.0); Monocytes % (A) 6 %; Neutrophils # (A) 4.9 k/uL (1.3-7.7); Neutrophils % (A) 56 %; Platelet Count 229 k/uL (150-450); RBC 5.34 m/uL (4.30-5.90); RDW 13.7 % (11.5-15.5); WBC 8.7 k/uL (3.8-10.6)
[2020-08-09 17:32] LABS: African American GFR (CKD) 95.8 (60.0-200.0); Albumin 4.4 g/dL (3.80-4.90); Albumin/Globulin Ratio 2.1 (1.60-3.17); Anion Gap 10.1 mmol/L (4.00-12.00); BUN/Creat Ratio 21.11 Ratio (12.00-20.00); Calcium 9.4 mg/dL (8.7-10.3); Carbon Dioxide 29.9 mmol/L (21.6-31.8); Chol/HDL Ratio 2.95; Globulin 2.1 g/dL (1.6-3.3); Non-African American GFR(CKD) 82.7 (60.0-200.0); Potassium 3.9 mmol/L (3.5-5.5); Total Bilirubin 0.7 mg/dL (0.3-1.2); Total Protein 6.5 g/dL (6.2-8.2)
[2020-08-09 17:39] LABS: T4, Free (Free Thyroxine) 1.4 ng/dL (0.80-1.80)
== END | disposition home or self-care (01) ==
LOC: LABWHC1 08:06
PROVIDERS: ATTEND Family Medicine
DX: Z00.01 Encounter for general adult medical examination with abnormal findings (principal); E03.9 Hypothyroidism, unspecified
CPT/HCPCS: 36415; 80053; 80061; 84153; 84439; 84443; 85025

== ENCOUNTER 2022-08-10 10:34 | Emergency (ER) | payer MEDICARE ==
[2022-08-10 10:50] VITALS: RESP 18
[2022-08-10] MEDS ORDERED: KETOROLAC 15 MG/ML 1 ML VIAL IVP STA (11:16)
[2022-08-10] MEDS ORDERED: HYDROmorphone 0.5 MG/0.5 ML SYRINGE IVP STA (11:16)
--- NOTE | 2022-08-10 11:20 | ED ---
General Adult HPI - General Chief complaint: Abdominal Pain Stated complaint: lt sided abd pain Time Seen by Provider: 08/10/22 10:55 Source: patient, RN notes reviewed, old records reviewed Mode of arrival: ambulatory Limitations: no limitations - History of Present Illness Initial comments: This is a 69-year-old male presents emergency department stating that yesterday he was doing some exercise with a ball and twisting back and forth in today he woke up he has got left-sided back pain that radiates around to his flank per patient states the pain is worsened with standing and twisting and occasionally sits down the pain becomes worse per patient denies any numbness weakness. Patient denies any pain down the leg. Patient states he does have swelling to the legs but he states it's normal for him. Patient denies any shortness of breath or difficulty breathing or chest pain. Patient denies any dysuria hematuria urinary frequency. Patient denies any abdominal pain. Patient denies nausea vomiting diarrhea. Patient denies any blunt trauma to the area. Patient denies any fever chills. - Related Data Home Medications Medication Instructions Recorded Confirmed Levothyroxine Sodium [Synthroid] 125 mcg PO AC-BRKFST 01/26/15 07/18/20 amLODIPine [Norvasc] 5 mg PO QA 01/26/15 07/20/20 Valsartan/Hydrochlorothiazide 1 tab PO DAILY@1200 01/29/15 07/18/20 [Diovan Hct 160-25 mg Tablet] metFORMIN HCL [Glucophage] 500 mg PO BID-W/MEALS 01/29/15 07/18/20 atenoloL 12.5 mg PO HS 10/09/15 07/18/20 Apixaban [Eliquis] 5 mg PO BID-W/MEALS 11/18/16 07/18/20 Atorvastatin [Lipitor] 20 mg PO HS 12/24/18 07/18/20 Cholecalciferol [Vitamin D3 (25 5,000 unit PO DAILY 12/24/18 07/20/20 Mcg = 1000 Iu)] Pyridoxine HCl (Vitamin B6) 100 mg PO DAILY@1200 02/14/20 07/18/20 [Vitamin B-6] Ascorbic Acid [Vitamin C] 1,000 mg PO DAILY 07/18/20 07/20/20 Quercetin 500 mg PO DAILY 07/18/20 07/20/20 Previous Rx's Medication Instructions Recorded Cyclobenzaprine [Flexeril] 5 mg PO TID #20 tab 08/10/22 Furosemide [Lasix] 20 mg PO DAILY #5 tab 08/10/22 Ibuprofen [Motrin] 400 mg PO Q8HR #12 tab 08/10/22 Allergies Allergy/AdvReac Type Severity Reaction Status Date / Time Iodinated Contrast Media Allergy Severe Dyspnea,N/V Verified 08/10/22 10:52 [Iodinated Contrast Media - IV Dye] iodine Allergy Severe Dyspnea,N/V Verified 08/10/22 10:52 adhesive Allergy Rash/Hives Verified 08/10/22 10:52 Penicillins Allergy Rash/Hives Verified 08/10/22 10:52 Review of Systems ROS Statement: Those systems with pertinent positive or pertinent negative responses have been documented in the HPI. ROS Other: All systems not noted in ROS Statement are negative. Past Medical History Past Medical History: Atrial Fibrillation, Diabetes Mellitus, Hyperlipidemia, Hypertension, Prostate Disorder, Thyroid Disorder Additional Past Medical History / Comment(s): ,bronchitis,arthritis, bulging disks neck and lower back, slow heart beat,enlarged prostate, CHANGE IN BOWEL HABITS AND TROUBLE SWALLOWING CERTAIN FOODS AND SOME REFLUX, LT SHOULDER PAIN- WAS IN PT History of Any Multi-Drug Resistant Organisms: None Reported Past Surgical History: Appendectomy, Heart Catheterization, Prostate Surgery Additional Past Surgical History / Comment(s): neck surgery, BPH/TURP, multiple cardioversion , growth removed from left ear, CATARACT SX, COLONOSCOPY, EGD Past Anesthesia/Blood Transfusion Reactions: No Reported Reaction Additional Past Anesthesia/Blood Transfusion Reaction / Comment(s): no hx blood transfusion Past Psychological History: No Psychological Hx Reported Smoking Status: Former smoker - Past Family History Father Family Medical History: Cancer Additional Family Medical History / Comment(s): at age 91 or 92,colon CA Sister(s) Family Medical History: Cancer Additional Family Medical History / Comment(s): kidney,breast,leg Mother Family Medical History: CVA/TIA, Diabetes Mellitus Additional Family Medical History / Comment(s): heart problems, at age 83 or 84 General Exam - General Exam Comments Initial Comments: GENERAL: Patient is well-developed and well-nourished. Patient is nontoxic and well- hydrated and is in mild distress. ENT: Neck is soft and supple. No significant lymphadenopathy is noted. Oropharynx is clear. Moist mucous membranes. Neck has full range of motion without eliciting any pain. EYES: The sclera were anicteric and conjunctiva were pink and moist. Extraocular movements were intact and pupils were equal round and reactive to light. Eyelids were unremarkable. PULMONARY: Unlabored respirations. Good breath sounds bilaterally. No audible rales rhonchi or wheezing was noted. CARDIOVASCULAR: There is a regular rate and rhythm without any murmurs gallops or rubs. ABDOMEN: Soft and nontender with normal bowel sounds. SKIN: Skin is clear with no lesions or rashes and otherwise unremarkable. NEUROLOGIC: Patient is alert and oriented x3. Cranial nerves II through XII are grossly intact. Motor and sensory are also intact. Normal speech, volume and content. Symmetrical smile. MUSCULOSKELETAL: Normal extremities with adequate strength and full range of motion. 1+ edema bilaterally. Patient has back pain to palpation that is the same as the back pain patient. Patient also states the pain increases when I have him twist. LYMPHATICS: No significant lymphadenopathy is noted PSYCHIATRIC: Normal psychiatric evaluation. Limitations: no limitations Course Vital Signs 08/10/22 08/10/22 08/10/22 10:46 11:40 13:22 Temperature 97.2 F L 97.6 F Pulse Rate 65 55 L 48 L Respiratory 18 18 18 Rate Blood Pressure 173/92 126/83 152/85 O2 Sat by Pulse 98 98 97 Oximetry Medical Decision Making - Medical Decision Making I interpret EKG myself. EKG shows atrial fibrillation at 60 bpm QRS is 90 QT interval 460 QTC is 460. Patient's EKG shows T-wave inversions in V3 V4 V5 and V6. Patient states he has a history of atrial fibrillation and T-wave inversion was seen on previous EKGs. Was pt. sent in by a medical professional or institution? @ -No Did you speak to anyone other than the patient for history? @ - gave some of the history patient did not know any of his medications Did you review nursing and triage notes? @ -I agree with the nursing triage notes Were old charts reviewed? @ -I compare old x-rays with previous x-rays. I also reviewed old labs. Differential Diagnosis? @ -Differential Back Pain: Strain, zoster, cauda equina syndrome, epidural abscess, vertebral osteomyelitis, discitis, fracture, subluxation, disc herniation, DJD, spinal stenosis, dissection, AAA, pancreatitis, peptic ulcer disease, pyelonephritis, kidney stone, this is not meant to be an all-inclusive list. EKG interpreted by me (3pts min.)? @ -As above X-rays interpreted by me (1pt min.)? @ -Chest x-ray was interpreted by myself that showed no acute abnormality. Lumbosacral spine was interpreted by myself showed no acute abnormality. CT interpreted by me (1pt min.)? @ -None U/S interpreted by me (1pt. min.)? @ -None What testing was considered but not performed? (CT, X-rays, U/S, labs)? Why? @ -None What meds were considered but not given? Why? @ -No Did you discuss the management of the patient with other professionals? @ -No Did you reconcile home meds? @ -No Was smoking cessation discussed for >3mins.? @ -No Was critical care preformed (if so, how long)? @ -No Were there social determinants of health that impacted care today? How? (Homelessness, low income, unemployed, alcoholism, drug addiction, trans portation, low edu. Level, literacy, decrease access to med. care, nursing home, rehab)? @ -No Was there de-escalation of care discussed even if they declined? (Discuss DNR or withdrawal of care, Hospice)? @ -No What co-morbidities impacted this encounter? (DM, HTN, Smoking, COPD, CAD, Cancer, CVA, Hep., AIDS, mental health diagnosis, sleep apnea, morbid obesity)? @ -Known Was patient admitted / discharged? @ -Patient we discharged home. Patient was given Dilaudid and Toradol in the emergency department history considerably better. Patient is also given a dose of Lasix for pedal edema because he has not been taking his Lasix at home. Undiagnosed new problem with uncertain prognosis? @ -No Drug Therapy requiring intensive monitoring for toxicity (Heparin, Nitro, Insulin, Cardizem)? @ -Known Were any procedures done? @ -No Diagnosis/symptom? @ -Musculoskeletal back pain Acute, or Chronic, or Acute on Chronic? @ -Acute Uncomplicated (without systemic symptoms) or Complicated (systemic symptoms)? @ -Uncomplicated Side effects of treatment? @ -No Exacerbation, Progression, or Severe Exacerbation] @ -No Poses a threat to life or bodily function? @ -No Diagnosis/symptom? @ -Pedal edema Acute, or Chronic, or Acute on Chronic? @ -Acute on chronic Uncomplicated (without systemic symptoms) or Complicated (systemic symptoms)? @ -Uncomplicated Side effects of treatment? @ -No Exacerbation, Progression, or Severe Exacerbation] @ -No Poses a threat to life or bodily function? @ -No - Lab Data Result diagrams: 08/10/22 11:26 08/10/22 11:26 Lab Results 08/10/22 08/10/22 08/10/22 Range/Units 11:22 11: 11:26 WBC 8.3 (3.8-10.6) k/uL RBC 5.33 (4.30-5.90) m/uL Hgb 15.7 (13.0-17.5) gm/dL Hct 46.8 (39.0-53.0) % MCV 87.8 (80.0-100.0) fL MCH 29.5 (25.0-35.0) pg MCHC 33.6 (31.0-37.0) g/dL RDW 13.0 (11.5-15.5) % Plt Count 207 (150-450) k/uL MPV 7.7 Neutrophils % 64 % Lymphocytes % 25 % Monocytes % 8 % Eosinophils % 2 % Basophils % 1 % Neutrophils # 5.3 (1.3-7.7) k/uL Lymphocytes # 2.1 (1.0-4.8) k/uL Monocytes # 0.6 (0-1.0) k/uL Eosinophils # 0.2 (0-0.7) k/uL Basophils # 0.1 (0-0.2) k/uL Sodium 141 (137-145) mmol/L Potassium 3.9 (3.5-5.1) mmol/L Chloride 102 (98-107) mmol/L Carbon Dioxide 30 (22-30) mmol/L Anion Gap 9 mmol/L BUN 19 (9-20) mg/dL Creatinine 0.84 (0.66-1.25) mg/dL Est GFR (CKD-EPI)AfAm >90 (>60 ml/min/1.73 sqM) Est GFR (CKD-EPI)NonAf 84 (>60 ml/min/1.73 sqM) Glucose 154 H (74-99) mg/dL Calcium 9.3 (8.4-10.2) mg/dL Total Bilirubin 0.9 (0.2-1.3) mg/dL AST 21 (17-59) U/L ALT 18 (4-49) U/L Alkaline Phosphatase 90 (38-126) U/L NT-Pro-B Natriuret Pep pg/mL Total Protein 7.4 (6.3-8.2) g/dL Albumin 4.4 (3.5-5.0) g/dL Urine Color Yellow Urine Appearance Clear (Clear) Urine pH 6.0 (5.0-8.0) Ur Specific [place] 1.013 (1.001-1.035) Urine Protein 1+ H (Negative) Urine Glucose (UA) Negative (Negative) Urine Ketones Negative (Negative) Urine Blood Trace H (Negative) Urine Nitrite Negative (Negative) Urine Bilirubin Negative (Negative) Urine Urobilinogen <2.0 (<2.0) mg/dL Ur Leukocyte Esterase Small H (Negative) Urine RBC 3 (0-5) /hpf Urine WBC 2 (0-5) /hpf Ur Squamous Epith Cells <1 (0-4) /hpf Urine Mucus Rare H (None) /hpf 08/10/22 Range/Units 11:26 WBC (3.8-10.6) k/uL RBC (4.30-5.90) m/uL Hgb (13.0-17.5) gm/dL Hct (39.0-53.0) % MCV (80.0-100.0) fL MCH (25.0-35.0) pg MCHC (31.0-37.0) g/dL RDW (11.5-15.5) % Plt Count (150-450) k/uL MPV Neutrophils % % Lymphocytes % % Monocytes % % Eosinophils % % Basophils % % Neutrophils # (1.3-7.7) k/uL Lymphocytes # (1.0-4.8) k/uL Monocytes # (0-1.0) k/uL Eosinophils # (0-0.7) k/uL Basophils # (0-0.2) k/uL Sodium (137-145) mmol/L Potassium (3.5-5.1) mmol/L Chloride (98-107) mmol/L Carbon Dioxide (22-30) mmol/L Anion Gap mmol/L BUN (9-20) mg/dL Creatinine (0.66-1.25) mg/dL Est GFR (CKD-EPI)AfAm (>60 ml/min/1.73 sqM) Est GFR (CKD-EPI)NonAf (>60 ml/min/1.73 sqM) Glucose (74-99) mg/dL Calcium (8.4-10.2) mg/dL Total Bilirubin (0.2-1.3) mg/dL AST (17-59) U/L ALT (4-49) U/L Alkaline Phosphatase (38-126) U/L NT-Pro-B Natriuret Pep 973 pg/mL Total Protein (6.3-8.2) g/dL Albumin (3.5-5.0) g/dL Urine Color Urine Appearance (Clear) Urine pH (5.0-8.0) Ur Specific [place] (1.001-1.035) Urine Protein (Negative) Urine Glucose (UA) (Negative) Urine Ketones (Negative) Urine Blood (Negative) Urine Nitrite (Negative) Urine Bilirubin (Negative) Urine Urobilinogen (<2.0) mg/dL Ur Leukocyte Esterase (Negative) Urine RBC (0-5) /hpf Urine WBC (0-5) /hpf Ur Squamous Epith Cells (0-4) /hpf Urine Mucus (None) /hpf Disposition Clinical Impression: Musculoskeletal back pain, Pedal edema Disposition: HOME SELF-CARE Prescriptions: Cyclobenzaprine [Flexeril] 5 mg PO TID #20 tab Furosemide [Lasix] 20 mg PO DAILY #5 tab Ibuprofen [Motrin] 400 mg PO Q8HR #12 tab Is patient prescribed a controlled substance at d/c from ED?: No Referrals: Regan Duque DO [Primary Care Provider] - 1-2 days Time of Disposition: 13:00
[2022-08-10 11:44] LABS: Basophils # (A) 0.1 k/uL (0-0.2); Basophils % (A) 1 %; Eosinophils # (A) 0.2 k/uL (0-0.7); Eosinophils % (A) 2 %; HCT 46.8 % (39.0-53.0); HGB 15.7 gm/dL (13.0-17.5); Lymphocytes # (A) 2.1 k/uL (1.0-4.8); Lymphocytes % (A) 25 %; MCH 29.5 pg (25.0-35.0); MCHC 33.6 g/dL (31.0-37.0); MCV 87.8 fL (80.0-100.0); Mean Platelet Volume 7.7; Monocytes # (A) 0.6 k/uL (0-1.0); Monocytes % (A) 8 %; Neutrophils # (A) 5.3 k/uL (1.3-7.7); Neutrophils % (A) 64 %; Platelet Count 207 k/uL (150-450); RBC 5.33 m/uL (4.30-5.90); WBC 8.3 k/uL (3.8-10.6)
[2022-08-10 11:44] LABS: Appearance,Urine Clear (Clear); Bilirubin,Urine Negative (Negative); Blood,Urine Trace (Negative); Color,Urine Yellow; Glucose,Urine (UA) Negative (Negative); Ketones,Urine Negative (Negative); Leukocyte Esterase,Urine Small (Negative); Mucus,Urine Rare /hpf; Nitrite,Urine Negative (Negative); Protein,Urine 1+ (Negative); RBC,Urine 3 /hpf (0-5); Specific Gravity,Urine 1.013 (1.001-1.035); Squamous Epithelial Cell,Urine <1 /hpf (0-4); Urobilinogen,Urine <2.0 mg/dL (<2.0); WBC,Urine 2 /hpf (0-5)
[2022-08-10 11:53] LABS: ALT 18 U/L (4-49); AST 21 U/L (17-59); African American GFR (CKD) >90 (>60 ml/min/1.73 sqM); Albumin 4.4 g/dL (3.5-5.0); Alkaline Phosphatase 90 U/L (38-126); Anion Gap 9 mmol/L; Blood Urea Nitrogen 19 mg/dL (9-20); Calcium 9.3 mg/dL (8.4-10.2); Carbon Dioxide 30 mmol/L (22-30); Chloride 102 mmol/L (98-107); Glucose 154 mg/dL (74-99); Non-African American GFR(CKD) 84 (>60 ml/min/1.73 sqM); Potassium 3.9 mmol/L (3.5-5.1); Sodium 141 mmol/L (137-145); Total Bilirubin 0.9 mg/dL (0.2-1.3); Total Protein 7.4 g/dL (6.3-8.2)
--- NOTE | 2022-08-10 12:26 | XR ---
EXAMINATION TYPE: XR chest 2V DATE OF EXAM: 08/10/2022 11:58 AM COMPARISON: Chest radiographs from 02/14/2020 TECHNIQUE: XR chest 2V Frontal and lateral views of the chest. CLINICAL INDICATION:Male, 77 years old with history of Difficulty breathing ; FINDINGS: Lungs/Pleura: There is flattening of the diaphragm with increased lucency of the lungs. No evidence o f pneumothorax, pleural effusion or focal consolidation. Pulmonary vascularity: Unremarkable. Heart/mediastinum: Cardiomediastinal silhouette is unremarkable. Musculoskeletal: No acute osseous pathology. IMPRESSION: 1. No acute cardiopulmonary disease process. 2. COPD changes.
--- NOTE | 2022-08-10 12:27 | XR ---
EXAMINATION TYPE: XR lumbosacral spine min 4V DATE OF EXAM: 08/10/2022 11:58 AM INDICATION: Patient age:Male; 77 years old; Reason for study: Left sided lower back pain; COMPARISON: 08/27/2018 MRI lumbar spine. TECHNIQUE: Frontal, lateral , bilateral oblique and coned in L5-S1 lateral views of the spine. FINDINGS: No evidence of any acute osseous pathology. No evidence of loss of vertebral body height i s seen. Alignment appears stable from 2019. Mild scattered disc space narrowing. Multilevel marginal osteophyte formation throughout the visualized spine. There is facet joint arthropathy throughout the spine. Scattered at least mild neural foraminal stenosis. IMPRESSION: 1. No acute fracture. 2. Mild multilevel disc degeneration
[2022-08-10] MEDS ORDERED: FUROSEMIDE 10 MG/ML 2 ML VIAL IV STA (12:43)
[2022-08-10 13:26] VITALS: BP 152/85; PULSE 48; TEMP 97.6
[2022-08-10 13:34] LABS: Glucose,Whole Blood 110 mg/dL (70-110)
== END 2022-08-10 13:32 | disposition home or self-care (01) ==
LOC: EC 10:34
DX: M79.18 Myalgia, other site (principal); R60.9 Edema, unspecified; J44.9 Chronic obstructive pulmonary disease, unspecified; I48.91 Unspecified atrial fibrillation; E11.9 Type 2 diabetes mellitus without complications; E78.5 Hyperlipidemia, unspecified; I10 Essential (primary) hypertension; E07.9 Disorder of thyroid, unspecified; Z87.891 Personal history of nicotine dependence; Z79.890 Hormone replacement therapy; Z79.899 Other long term (current) drug therapy; Z79.84 Long term (current) use of oral hypoglycemic drugs; Z79.01 Long term (current) use of anticoagulants; Z88.0 Allergy status to penicillin; Z91.041 Radiographic dye allergy status; Z91.048 Other nonmedicinal substance allergy status
CPT/HCPCS: 99285; 96374; 96375 ×2; 36415; 93005; 83880; 80053; 85025; 81001; 72110; 71046; J1940; J1885; J1170

== ENCOUNTER → 2022-08-21 | Outpatient (CLI) | payer MEDICARE ==
[2022-08-21 15:23] LABS: HCT 48.5 % (39.6-50.0); HGB 15.3 g/dL (13.0-17.0); MCH 28.4 pg (27.0-32.0); MCHC 31.5 g/dL (32.0-37.0); MCV 90.1 fL (80.0-97.0); Mean Platelet Volume 9.9 fL (9.5-12.2); NRBC Per 100 WBC 0 /100 WBCS (0.0-0.0); Platelet Count 223 X 10*3/uL (140-440); RBC 5.38 X 10*6/uL (4.40-5.60); RDW 13.4 % (11.5-14.5)
[2022-08-21 17:13] LABS: ALT 17 U/L (10-49); AST 24 U/L (14-35); African American GFR (CKD) 84.1 (60.0-200.0); Albumin 4.1 g/dL (3.8-4.9); Albumin/Globulin Ratio 1.45 (1.60-3.17); Alkaline Phosphatase 79 U/L (41-126); BUN/Creat Ratio 14.13 Ratio (12.00-20.00); Calcium 9.6 mg/dL (8.7-10.3); Carbon Dioxide 27.9 mmol/L (20.0-27.5); Chloride 105 mmol/L (96-109); Chol/HDL Ratio 2.96 Ratio; Globulin 2.9 g/dL (1.6-3.3); Glucose 120 mg/dL (70-110); LDL Cholesterol,Calculated 75.3 mg/dL (0.0-131.0); Non-African American GFR(CKD) 72.6 (60.0-200.0); Potassium 4.2 mmol/L (3.5-5.5); Sodium 144 mmol/L (135-145); VLDL Calculation 12.82 mg/dL (5.00-40.00)
[2022-08-21 17:20] LABS: Appearance,Urine Clear (Clear); Bilirubin,Urine Negative (Negative); Blood,Urine Trace (Negative); Color,Urine Yellow (Yellow); Ketones,Urine Negative (Negative); Nitrite,Urine Negative (Negative); Specific Gravity,Urine 1.012 (1.001-1.030); Urobilinogen,Urine 0.2 (0.2,1.0)
[2022-08-21 17:26] LABS: Bacteria,Urine None Seen /HPF (None Seen)
[2022-08-21 18:10] LABS: Urine Creatinine 69.9 mg/dL (39.0-259.0)
== END | disposition home or self-care (01) ==
LOC: LABWHC1 09:19
PROVIDERS: ATTEND Family Medicine
DX: Z00.01 Encounter for general adult medical examination with abnormal findings (principal); Z12.5 Encounter for screening for malignant neoplasm of prostate; E11.9 Type 2 diabetes mellitus without complications; E03.9 Hypothyroidism, unspecified
CPT/HCPCS: 84439; 80061; 80053; 84443; 85027; 81001; 82043; 82570; 83036; 36415; G0103

== ENCOUNTER → 2023-02-13 | Outpatient (CLI) | payer MEDICARE ==
--- NOTE | 2023-02-13 11:35 | XR ---
EXAMINATION TYPE: XR foot complete LT DATE OF EXAM: 02/13/2023 COMPARISON: None HISTORY: Pain and swelling TECHNIQUE: 3 view left foot FINDINGS: Plantar calcaneal heel spurs are present. A small Achilles tendon calcaneal heel spurs pres ent. No acute fractures or dislocations are evident. There may be some mild thickening of the cortex of th e fourth and possibly third metatarsal. Consider stress fracture. No lucent fracture lines identified . Follow up studies can be performed as clinically indicated. IMPRESSION: 1. Consider stress fracture of the fourth and possibly third metatarsal. The fracture line is not id entified. 2. Follow-up studies can be performed for occult fracture evaluation.
--- NOTE | 2023-02-13 11:37 | XR ---
EXAMINATION TYPE: XR ankle complete LT DATE OF EXAM: 02/13/2023 COMPARISON: None HISTORY: Pain and swelling TECHNIQUE: 3 view left ankle FINDINGS: Ankle mortise is intact. There may be minimal soft tissue swelling over the medial malleolu s. Calcaneal heel spurs are present in no acute fractures or dislocations within the [id number]. F ollow up exams can be performed as clinically indicated. IMPRESSION: 1. Minimal soft tissue swelling medial malleolus. 2. No acute osseous fractures.
[2023-02-13 16:26] LABS: HCT 46.4 % (39.6-50.0); HGB 14.4 d/dL (12.0-15.0); MCH 27.9 pg (27.0-32.0); MCV 89.9 FL (80.0-97.0); Mean Platelet Volume 9.8 FL (9.5-12.2); NRBC Per 100 WBC 0 X 10*3/uL (0.00-0.01); Platelet Count 228 X 10*3/uL (140-440); RBC 5.16 X 10*6/uL (4.40-5.60); RDW 13.4 % (11.5-14.5); WBC 7.27 X 10*3/uL (4.50-10.00)
[2023-02-13 17:31] LABS: ALT 12 U/L (10-49); AST 16 U/L (14-35); BUN/Creat Ratio 19.22 Ratio (12.00-20.00); Blood Urea Nitrogen 17.3 mg/dL (9.0-27.0); Calcium 9.7 mg/dL (8.7-10.3); Carbon Dioxide 26.8 mmol/L (21.6-31.8); Chloride 106 mmol/L (96-109); Chol/HDL Ratio 2.65 Ratio; Glucose 125 mg/dL (70-110); LDL Cholesterol,Calculated 68.2 mg/dL (0.0-131.0); Potassium 4.3 mmol/L (3.5-5.5); Sodium 144 mmol/L (135-145); T4, Free (Free Thyroxine) 1.49 ng/dL (0.80-1.80); VLDL Calculation 12.66 mg/dL (5.00-40.00)
== END | disposition home or self-care (01) ==
LOC: LABWHC1 08:07
PROVIDERS: ATTEND Internal Medicine Interventional Cardiology
DX: I10 Essential (primary) hypertension (principal); E11.9 Type 2 diabetes mellitus without complications; E78.5 Hyperlipidemia, unspecified; E03.9 Hypothyroidism, unspecified; M25.572 Pain in left ankle and joints of left foot; M19.079 Primary osteoarthritis, unspecified ankle and foot; M25.472 Effusion, left ankle
CPT/HCPCS: 36415; 80048; 80061; 83036; 84439; 84443; 84450; 84460; 85027

== ENCOUNTER → 2023-08-05 | Outpatient (CLI) | payer MEDICARE ==
[2023-08-05 15:11] LABS: HCT 46.5 % (39.6-50.0); MCH 29.2 pg (27.0-32.0); MCHC 32.3 g/dL (32.0-37.0); MCV 90.5 FL (80.0-97.0); Mean Platelet Volume 9.9 FL (9.5-12.2); NRBC Per 100 WBC 0 X 10*3/uL (0.00-0.01); Platelet Count 194 X 10*3/uL (140-440); RBC 5.14 X 10*6/uL (4.40-5.60); RDW 14.4 % (11.5-14.5); WBC 7.19 X 10*3/uL (4.50-10.00)
[2023-08-05 15:21] LABS: Chol/HDL Ratio 2.81 Ratio; LDL Cholesterol,Calculated 73.6 mg/dL (0.0-131.0); VLDL Calculation 12.74 mg/dL (5.00-40.00)
[2023-08-05 15:22] LABS: ALT 13 U/L (10-49); AST 17 U/L (14-35); Albumin 3.9 g/dL (3.8-4.9); Albumin/Globulin Ratio 1.62 Ratio (1.60-3.17); Alkaline Phosphatase 76 U/L (41-126); BUN/Creat Ratio 20.78 Ratio (12.00-20.00); Blood Urea Nitrogen 18.7 mg/dL (9.0-27.0); Calcium 9.3 mg/dL (8.7-10.3); Carbon Dioxide 24.2 mmol/L (21.6-31.8); Chloride 107 mmol/L (96-109); Globulin 2.4 g/dL (1.6-3.3); Glucose 136 mg/dL (70-110); Potassium 3.7 mmol/L (3.5-5.5); Prostate Specific Antigen 2.56 ng/mL (0.000-6.500); Sodium 143 mmol/L (135-145); T4, Free (Free Thyroxine) 1.28 ng/dL (0.80-1.80); Total Bilirubin 0.5 mg/dL (0.3-1.2); Total Protein 6.3 g/dL (6.2-8.2)
[2023-08-05 15:58] LABS: Appearance,Urine Clear (Clear); Bilirubin,Urine Negative (Negative); Blood,Urine Negative (Negative); Color,Urine Yellow (Yellow); Ketones,Urine Negative (Negative); Nitrite,Urine Negative (Negative); Specific Gravity,Urine 1.013 (1.001-1.030); Urobilinogen,Urine 0.2 E.U./DL
[2023-08-05 16:14] LABS: Bacteria,Urine None Seen (None Seen)
[2023-08-05 18:41] LABS: Urine Creatinine 72.9 mg/dL (39.0-259.0)
== END | disposition home or self-care (01) ==
LOC: LABWHC1 08:22
PROVIDERS: ATTEND Family Medicine
DX: I10 Essential (primary) hypertension (principal); E03.9 Hypothyroidism, unspecified; E11.9 Type 2 diabetes mellitus without complications; E78.5 Hyperlipidemia, unspecified; E55.9 Vitamin D deficiency, unspecified; N40.1 Benign prostatic hyperplasia with lower urinary tract symptoms
CPT/HCPCS: 36415; 80053; 80061; 81001; 82043; 82306; 82570; 83036; 84153; 84439; 84443; 85027

== ENCOUNTER → 2023-08-24 | Outpatient (CLI) | payer MEDICARE ==
--- NOTE | 2023-08-24 09:05 | MR ---
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 MRV of the brain: performed utilizing two-dimensional [id number] technique MIP and 3-D reconstruc tion. Performed on a separate workstation. IV Contrast: None Findings: Vertebral arteries: The vertebral arteries are patent. The left vertebral artery is dominant. Basilar artery: The basilar artery is intact. The basilar artery bifurcation is normal. Internal Carotid arteries: Stable possible tiny 1 mm sector aneurysm series 301 image 93 and on the l eft image 98. These are possibly origins of tiny arterial vessels. Otherwise, the cervical, petrous, cavernous and supraclinoid segments are normal. CARISSA: Patent without evidence of aneurysm. ACOM: Patent without evidence of aneurysm. MCA: Patent without evidence of aneurysm. BAR POINTER: Patent without evidence of aneurysm. PCOM: Hypoplastic bilaterally. Right internal auditory canal vascular loop type II. There is no evidence of venous occlusion or fito ateral circulation. There is no evidence of sinus thrombosis. Dominant right and atrophic left trans verse sinuses. IMPRESSION: 1. Previously described possible 1 mm saccular aneurysm cavernous segment right ICA and left ICA ter minus are stable in appearance. 2. Right internal auditory canal vascular loop type II. 3. No evidence of venous sinus thrombosis.
== END | disposition home or self-care (01) ==
LOC: RADMRIMAIN 07:06
PROVIDERS: ATTEND Specialist
DX: I67.1 Cerebral aneurysm, nonruptured (principal); G46.8 Other vascular syndromes of brain in cerebrovascular diseases
CPT/HCPCS: 70544

== ENCOUNTER → 2024-02-09 | Outpatient (CLI) | payer MEDICARE ==
[2024-02-09 11:41] LABS: HCT 47.4 % (39.6-50.0); MCH 28.4 pg (27.0-32.0); MCHC 31.6 g/dL (32.0-37.0); MCV 89.8 FL (80.0-97.0); NRBC Per 100 WBC 0 X 10*3/uL (0.00-0.01); Platelet Count 202 X 10*3/uL (140-440); RBC 5.28 X 10*6/uL (4.40-5.60); RDW 13.4 % (11.5-14.5); WBC 7.02 X 10*3/uL (4.50-10.00)
[2024-02-09 12:18] LABS: ALT 15 U/L (10-49); AST 20 U/L (14-35); Albumin 4.2 g/dL (3.8-4.9); Albumin/Globulin Ratio 1.91 Ratio (1.60-3.17); Alkaline Phosphatase 81 U/L (41-126); BUN/Creat Ratio 16.17 Ratio (12.00-20.00); Blood Urea Nitrogen 19.4 mg/dL (9.0-27.0); Calcium 9.8 mg/dL (8.7-10.3); Carbon Dioxide 26.1 mmol/L (21.6-31.8); Chloride 106 mmol/L (96-109); Chol/HDL Ratio 2.31 Ratio; Globulin 2.2 g/dL (1.6-3.3); Glucose 138 mg/dL (70-110); LDL Cholesterol,Calculated 52.6 mg/dL (0.0-131.0); Potassium 4.3 mmol/L (3.5-5.5); Sodium 144 mmol/L (135-145); T4, Free (Free Thyroxine) 1.42 ng/dL (0.80-1.80); Total Bilirubin 0.6 mg/dL (0.3-1.2); Total Protein 6.4 g/dL (6.2-8.2); VLDL Calculation 12.64 mg/dL (5.00-40.00)
== END | disposition home or self-care (01) ==
LOC: LABWHC1 07:09
PROVIDERS: ATTEND Family Medicine
DX: I10 Essential (primary) hypertension (principal); E78.5 Hyperlipidemia, unspecified; E03.9 Hypothyroidism, unspecified; E11.9 Type 2 diabetes mellitus without complications; E55.9 Vitamin D deficiency, unspecified
CPT/HCPCS: 36415; 80053; 80061; 82043; 82306; 82570; 83036; 84439; 84443; 85027

== ENCOUNTER → 2024-02-10 | Outpatient (CLI) | payer MEDICARE ==
--- NOTE | 2024-02-11 11:52 | MR ---
EXAMINATION TYPE: MR lumbar spine wo con DATE OF EXAM: 02/10/2024 8:10 PM CLINICAL INDICATION:Male, 79 years old with history of M54.16 radiculopathy in the lumbar (lower back ) region; PHH, Low back pain that radiates down both legs. COMPARISON: 08/27/2018 TECHNIQUE: Multi planar, multi sequence imaging was performed utilizing: T1-weighted, T2-weighted, a nd turbo inversion recovery imaging of the lumbar spine. IV Contrast: cc . (None if empty) FINDINGS: Alignment: The lumbar vertebral bodies have preserved heights and alignment. Cord: The conus medullaris and the distal spinal cord appear unremarkable with regards to their signa l intensity and morphology. Bones/Discs: Multilevel disc degeneration changes with osteophyte formation, disc space narrowing, Sc hmorl's nodes, and facet joint arthropathy. Reactive adjoining endplate edema at L2-L3 Intervertebral disc signal is maintained. T12-L1: No evidence of significant spinal canal stenosis or neural foraminal stenosis. L1-L2: No evidence of significant spinal canal stenosis or neural foraminal stenosis. L2-L3: Disc bulge possible extrusion centrally which mildly moderately narrows the spinal canal and f acet joint arthropathy result in mild spinal canal and moderate bilateral neural foraminal stenosis. L3-L4: Disc bulge and facet joint arthropathy result in mild spinal canal and moderate bilateral neur al foraminal stenosis. L4-L5: Disc bulge and facet joint arthropathy result in mild spinal canal and severe bilateral neural foraminal stenosis. L5-S1: The disc has a rounded posterior morphology without significant spinal canal stenosis. Facet j oint arthropathy with severe bilateral neural foraminal stenosis. No significant spinal canal or neural foraminal stenosis in the remainder of the visualized levels. Other findings: Simple appearing bilateral renal cysts. IMPRESSION: 1. L2-L3 disc bulge with central extrusion with mild to moderate spinal canal stenosis and moderate bilateral neural foraminal stenosis. 2. Multilevel disc degeneration with associated osteoarthritic changes. Neural foraminal stenosis wo rse at L4-L5 and L5-S1 with severe bilateral.
== END | disposition home or self-care (01) ==
LOC: RADMRIMAIN 19:45
PROVIDERS: ATTEND Family Medicine
DX: M54.16 Radiculopathy, lumbar region (principal); M48.061 Spinal stenosis, lumbar region without neurogenic claudication; M51.26 Other intervertebral disc displacement, lumbar region; M51.36 Other intervertebral disc degeneration, lumbar region
CPT/HCPCS: 72148

== ENCOUNTER → 2024-06-14 | Outpatient (CLI) | payer MEDICARE ==
[2024-06-14 15:05] LABS: Basophils # (A) 0.05 X 10*3/uL (0.00-0.10); Basophils % (A) 0.6 %; Eosinophils % (A) 2.5 %; HCT 46.8 % (39.6-50.0); HGB 14.7 g/dL (13.0-17.0); Lymphocytes # (A) 2.44 X 10*3/uL (0.90-5.00); MCH 28.4 pg (27.0-32.0); MCHC 31.4 g/dL (32.0-37.0); MCV 90.3 FL (80.0-97.0); Mean Platelet Volume 10.1 FL (9.5-12.2); Monocytes # (A) 0.62 X 10*3/uL (0.20-1.00); Monocytes % (A) 7.9 %; NRBC Per 100 WBC 0 X 10*3/uL (0.00-0.01); Neutrophils # (A) 4.52 X 10*3/uL (1.80-7.70); Neutrophils % (A) 57.6 %; Platelet Count 208 X 10*3/uL (140-440); RBC 5.18 X 10*6/uL (4.40-5.60); RDW 13.9 % (11.5-14.5); WBC 7.86 X 10*3/uL (4.50-10.00)
[2024-06-14 15:32] LABS: ALT 13 U/L (10-49); AST 18 U/L (14-35); Albumin/Globulin Ratio 1.67 Ratio (1.60-3.17); Alkaline Phosphatase 83 U/L (41-126); Blood Urea Nitrogen 18.5 mg/dL (9.0-27.0); Calcium 9.2 mg/dL (8.7-10.3); Carbon Dioxide 24.6 mmol/L (21.6-31.8); Chloride 107 mmol/L (96-109); Chol/HDL Ratio 2.43 Ratio; Globulin 2.4 g/dL (1.6-3.3); Glucose 136 mg/dL (70-110); LDL Cholesterol,Calculated 58.2 mg/dL (0.0-131.0); Sodium 143 mmol/L (135-145); Total Bilirubin 0.6 mg/dL (0.3-1.2); Total Protein 6.4 g/dL (6.2-8.2); VLDL Calculation 11.22 mg/dL (5.00-40.00)
== END | disposition home or self-care (01) ==
LOC: LABWHC1 08:05
PROVIDERS: ATTEND Family Medicine
DX: E78.5 Hyperlipidemia, unspecified (principal); E55.9 Vitamin D deficiency, unspecified; I10 Essential (primary) hypertension; E53.8 Deficiency of other specified B group vitamins
CPT/HCPCS: 36415; 80053; 80061; 82306; 82607; 83036; 85025

== ENCOUNTER → 2024-07-12 | Outpatient (CLI) | payer MEDICARE ==
--- NOTE | 2024-07-12 11:00 | XR ---
EXAMINATION TYPE: XR chest 2V DATE OF EXAM: 07/12/2024 10:54 AM COMPARISON: Chest radiographs from 05/29/2023 TECHNIQUE: XR chest 2V Frontal and lateral views of the chest. CLINICAL INDICATION:Male, 79 years old with history of [id number] PRE SURG TESTING; atrial fibrillation, asthma. FINDINGS: Lungs/Pleura: There is no evidence of pleural effusion, focal consolidation, or pneumothorax. Pulmonary vascularity: Unremarkable. Heart/mediastinum: Cardiomediastinal silhouette is enlarged and stable. Musculoskeletal: No acute osseous pathology. IMPRESSION: 1. No acute cardiopulmonary disease/process. 2. Cardiomegaly. [facility], , 07/12/2024 10:58 AM
[2024-07-12 11:21] LABS: Partial Thromboplastin Time 24.5 sec (22.0-30.0); Prothrombin Time 10.7 sec (10.0-12.5)
[2024-07-12 14:52] LABS: Basophils # (A) 0.05 X 10*3/uL (0.00-0.10); Basophils % (A) 0.6 %; Eosinophils % (A) 2.6 %; HCT 46.9 % (39.6-50.0); HGB 14.9 g/dL (13.0-17.0); Lymphocytes # (A) 2.41 X 10*3/uL (0.90-5.00); Lymphocytes % (A) 31.1 %; MCH 28.9 pg (27.0-32.0); MCHC 31.8 g/dL (32.0-37.0); MCV 91.1 FL (80.0-97.0); Mean Platelet Volume 10.1 FL (9.5-12.2); Monocytes # (A) 0.72 X 10*3/uL (0.20-1.00); Monocytes % (A) 9.3 %; NRBC Per 100 WBC 0 X 10*3/uL (0.00-0.01); Neutrophils # (A) 4.34 X 10*3/uL (1.80-7.70); Neutrophils % (A) 56.1 %; Platelet Count 205 X 10*3/uL (140-440); RBC 5.15 X 10*6/uL (4.40-5.60); RDW 13.6 % (11.5-14.5); WBC 7.74 X 10*3/uL (4.50-10.00)
[2024-07-12 15:30] LABS: Blood Urea Nitrogen 19.2 mg/dL (9.0-27.0); Carbon Dioxide 26.6 mmol/L (21.6-31.8); Chloride 105 mmol/L (96-109); Glucose 130 mg/dL (70-110); Potassium 4.6 mmol/L (3.5-5.5); Sodium 144 mmol/L (135-145)
[2024-07-12 15:31] LABS: ALT 16 U/L (10-49); AST 18 U/L (14-35); Albumin 4.1 g/dL (3.8-4.9); Albumin/Globulin Ratio 1.78 Ratio (1.60-3.17); Alkaline Phosphatase 79 U/L (41-126); Calcium 9.7 mg/dL (8.7-10.3); Globulin 2.3 g/dL (1.6-3.3); T4, Free (Free Thyroxine) 1.38 ng/dL (0.80-1.80); Total Bilirubin 0.5 mg/dL (0.3-1.2); Total Protein 6.4 g/dL (6.2-8.2)
[2024-07-12 15:48] LABS: Appearance,Urine Clear (Clear); Bilirubin,Urine Negative (Negative); Blood,Urine Negative (Negative); Color,Urine Yellow (Yellow); Ketones,Urine Negative (Negative); Nitrite,Urine Negative (Negative); PH, Urine 6.5; Specific Gravity,Urine 1.016 (1.001-1.030); Urobilinogen,Urine 0.2 E.U./DL
[2024-07-12 15:55] LABS: Bacteria,Urine None Seen (None Seen)
== END | disposition home or self-care (01) ==
LOC: LABWHC1 10:07
PROVIDERS: ATTEND Family Medicine
DX: Z01.818 Encounter for other preprocedural examination (principal); I48.91 Unspecified atrial fibrillation; I51.7 Cardiomegaly; J45.909 Unspecified asthma, uncomplicated
CPT/HCPCS: 36415; 71046; 80053; 81001; 82306; 83036; 84439; 84443; 85025; 85610; 85730; 87070; 87086

== ENCOUNTER → 2024-12-01 | Outpatient (CLI) | payer MEDICARE ==
[2024-12-01 15:00] LABS: HCT 48.7 % (39.6-50.0); HGB 15.3 g/dL (13.0-17.0); MCH 29.4 pg (27.0-32.0); MCHC 31.4 g/dL (32.0-37.0); MCV 93.5 FL (80.0-97.0); Mean Platelet Volume 10.1 FL (9.5-12.2); NRBC Per 100 WBC 0.02 X 10*3/uL (0.00-0.01); Platelet Count 192 X 10*3/uL (140-440); RBC 5.21 X 10*6/uL (4.40-5.60); WBC 8.35 X 10*3/uL (4.50-10.00)
[2024-12-01 15:44] LABS: ALT 17 U/L (10-49); AST 21 U/L (14-35); Albumin 4.1 g/dL (3.8-4.9); Albumin/Globulin Ratio 1.78 Ratio (1.60-3.17); Alkaline Phosphatase 80 U/L (41-126); Blood Urea Nitrogen 16.6 mg/dL (9.0-27.0); Calcium 9.8 mg/dL (8.7-10.3); Carbon Dioxide 26.9 mmol/L (21.6-31.8); Chloride 106 mmol/L (96-109); Globulin 2.3 g/dL (1.6-3.3); Glucose 128 mg/dL (70-110); LDL Cholesterol,Calculated 68.8 mg/dL (0.0-131.0); Potassium 4.7 mmol/L (3.5-5.5); Prostate Specific Antigen 3.22 ng/mL (0.000-6.500); Sodium 145 mmol/L (135-145); T4, Free (Free Thyroxine) 1.42 ng/dL (0.80-1.80); Total Bilirubin 0.7 mg/dL (0.3-1.2); Total Protein 6.4 g/dL (6.2-8.2); VLDL Calculation 11.72 mg/dL (5.00-40.00)
== END | disposition home or self-care (01) ==
LOC: LABWHC1 08:01
PROVIDERS: ATTEND Family Medicine
DX: I10 Essential (primary) hypertension (principal); N40.1 Benign prostatic hyperplasia with lower urinary tract symptoms; E03.9 Hypothyroidism, unspecified; E78.5 Hyperlipidemia, unspecified; E11.65 Type 2 diabetes mellitus with hyperglycemia
CPT/HCPCS: 36415; 80053; 80061; 83036; 84153; 84439; 84443; 85027